=== PATIENT | male | born 1945 | race Caucasian/White ===

== ENCOUNTER 2017-06-24 14:44 | Observation (INO) ==
[2017-06-24] MEDS ORDERED: *HR* FentaNYL (PF) 100 MCG/2 ML VIAL IVP ONE ×2 (15:12→15:58)
[2017-06-24] MEDS ORDERED: 0.9 % Sodium Chloride 1,000 ML IVC ONE (15:12)
--- NOTE | 2017-06-24 15:16 | Emergency Department Note ---
START Narrative - START START: I examined this patient and my medical decision-making was reviewed with the Resident Physician. I agree with the documented findings, disposition and treatment plan as described except to the extent set forth below. 72-year-old male presents emergency room for right-sided abdominal pain. Patient was recently discovered to have multiple gallstones. He saw his general surgeon on Sunday wanted him to have cardiac clearance for gallbladder removal. He has been having increasing pain for the past 2 days. He stopped his Coumadin on Sunday. He had been on that for pulmonary embolus. Plan at this time is to check labs as well as a urinalysis and possible repeat CT scan to evaluate his gallbladder. Pain control. IV fluids. Patient will likely need to be admitted due to worsening symptoms and can have the cardiac clearance done during the stay.
[2017-06-24 15:52] LABS: Basophils % 0.4 %; Eosinophils # 0.1 K/mcL (0.0-0.6); Eosinophils % 1.1 %; Hematocrit 38.9 % (37.5-50.1); Immature Granulocytes % 0.6 % (0-4); Lymphocytes # 2.3 K/mcL (0.6-4.6); Lymphocytes % 22.2 %; Mean Corpuscular HGB Conc 33.4 g/dL (31.6-35.5); Mean Corpuscular Hemoglobin 32.3 pg (28.0-33.3); Mean Corpuscular Volume 96.8 fL (83.0-100.0); Monocytes # 0.8 K/mcL (0.0-1.3); Monocytes % 8.2 %; Neutrophils # 6.9 K/mcL (1.6-8.9); Platelet Count 160 K/mcL (140-400); Red Blood Count 4.02 M/mcL (4.19-5.50); Red Cell Distribution Width 14.6 % (11.5-14.5); Segmented Neutrophils % 67.5 %
--- NOTE | 2017-06-24 15:54 | Emergency Department Note ---
Disposition Clinical Impression: History of cholelithiasis, RUQ abdominal pain, RLQ abdominal pain Disposition: Admitted As Inpatient Condition: Fair Time of Disposition: 16:57 Abdominal Pain HPI - General Chief Complaint: ED Abdominal Pain Stated Complaint: Gallbladder Time Seen by Provider: 06/24/17 14:54 Source: patient, family Nursing Notes Reviewed: Yes Vital Signs Reviewed: Yes - History of Present Illness HPI Narrative: 72-year-old male has a history of CABG, cardiac stents 3, AICD who follows up with Dr. Sepulveda for cardiology presents today with worsening abdominal pain with concerns for gallbladder dysfunction. Patient had CT abdomen which showed numerous stones in the gallbladder but did not have acute cholecystitis. Patient has followed up with Dr. Garcia of Gen. surgery 2 days ago who stated he needed cardiac clearance before surgery. Dr. Garcia told the patient if the pain worsens to come to the ED. Patient's pain systems began just over week ago. Patient has pain in the right upper quadrant and right lower quadrant 8/10 sharp and dull without radiation. Patient also has a history of nephrectomy. 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 Pain Scale: 6 - Related Data Home Medications Medication Instructions Recorded Confirmed Albuterol Neb [Proventil Neb] 2.5 mg IH 2-4XD PRN 06/15/15 06/24/17 Alprazolam [Xanax] 0.5 mg PO TID 06/15/15 06/24/17 Aspirin Enteric Coated [Aspirin EC] 81 mg PO DAILY 06/15/15 06/24/17 Atorvastatin [Lipitor] 40 mg PO QAM 06/15/15 06/24/17 Digoxin [Lanoxin] 0.125 mg PO HS 06/15/15 06/24/17 Diltiazem HCl [Diltiazem 24Hr Cd] 240 mg PO DAILY 06/15/15 06/24/17 Furosemide [Lasix] 40 mg PO BID 06/15/15 06/24/17 Gabapentin [Neurontin] 200 mg PO BID 06/15/15 06/24/17 Metoprolol XL (24 HR) Succ [Toprol 25 mg PO DAILY 06/15/15 06/24/17 XL] Omeprazole [PriLOSEC] 20 mg PO BID 06/15/15 06/24/17 Tamsulosin [Flomax] 0.4 mg PO HS 06/15/15 06/24/17 Morphine Immed Rel [Morphine 30 mg PO BID PRN #0 08/19/15 06/24/17 Sulfate] OxyCODONE/APAP 5/325 [Percocet 1 tab PO QID PRN 09/04/15 06/24/17 5/325 MG] Fluticasone/Vilanterol [Breo 1 puff IH DAILY 12/05/16 06/24/17 Ellipta 100-25 Mcg INH] Terazosin [Hytrin] 1 mg PO HS 12/05/16 06/24/17 Vit C/E/Zn/Coppr/Lutein/Zeaxan 1 tab PO BID 12/05/16 06/24/17 [Preservision Areds 2 Softgel] Cyanocobalamin (Vitamin B-12) 1,000 mcg PO BID 06/14/17 06/24/17 [Vitamin B12] Warfarin [Coumadin] 3 mg PO 1800 06/14/17 06/24/17 Lactobacillus Acidophilus 1 tab PO DAILY 06/24/17 06/24/17 [Acidophilus Lactobacillus] Allergies Allergy/AdvReac Type Severity Reaction Status Date / Time Amoxicillin [From Augmentin] Allergy See Verified 06/24/17 14:46 Comments clavulanic acid Allergy See Verified 06/24/17 14:46 [From Augmentin] Comments Metolazone Allergy See Verified 06/24/17 14:46 Comments tobramycin Allergy See Verified 06/24/17 14:46 Comments All systems ED: reviewed and negative except as stated. Review of Systems: As Per HPI Constitutional: Denies: fever, chills, weakness ENT ED: Denies: congestion Cardiovascular: Denies: chest pain, palpitations, dyspnea on exertion Respiratory: Denies: cough, dyspnea, wheezes Gastrointestinal: Reports: abdominal pain. Denies: nausea, vomiting, diarrhea Genitourinary: Denies: urgency, dysuria, frequency, hematuria Musculoskeletal: Denies: back pain Integumentary: Denies: rash Neurological: Reports: headache Psychiatric: Denies: anxiety Endocrine: Denies: fatigue Abdominal Pain PMH - Past Medical History Medical history: Reports: arthritis, atrial fibrillation, COPD, coronary artery disease, diabetes, pulmonary embolus, renal disease Psychiatric history: Reports: no psych history - Social History Smoking status: Former smoker Alcohol use: Reports: none Drug use: Reports: none Physical Exam Vital Signs Temperature 97.6 F 06/24/17 14:47 Pulse Rate 66 06/24/17 14:47 Respiratory Rate 14 06/24/17 14:47 Blood Pressure 125/67 06/24/17 14:47 O2 Sat by Pulse Oximetry 95 06/24/17 14:47 Temperature 97.6 F 06/24/17 14:47 Pulse Rate 82 06/24/17 15:43 Respiratory Rate 16 06/24/17 15:43 Blood Pressure 124/69 06/24/17 15:43 O2 Sat by Pulse Oximetry 95 06/24/17 15:43 Oxygen Delivery Oxygen Delivery Room Air 72-year-old male who is alert and oriented 3. Is in acute distress secondary to his abdominal pain but is nontoxic appearing, patient's nondiaphoretic. Patient has no conversational dyspnea. - General Limitations: no limitations General appearance: alert, in no apparent distress - Head Head exam: atraumatic, normocephalic, normal inspection - Eye Eye exam: Present: normal appearance, PERRL, EOMI - ENT ENT exam: normal exam, normal oropharynx, mucous membranes moist - Neck Neck exam: Present: normal inspection, full ROM, trachea midline - Chest Chest inspection: Present: symmetric chest wall rise. Absent: tenderness, rash - Respiratory Respiratory exam: Present: normal lung sounds bilaterally. Absent: respiratory distress, wheezes - Cardiovascular Cardiovascular exam: Present: regular rate, normal rhythm, normal heart sounds - Abdominal Exam Abdominal exam: Present: soft, tenderness. Absent: distention, guarding, rebound, rigidity Abdominal tenderness: Present: RUQ, RLQ - Extremities Exam Extremities exam: Present: normal inspection, full ROM, normal capillary refill. Absent: tenderness, pedal edema - Back Exam Back exam: Present: normal inspection, full ROM, CVA tenderness (R). Absent: tenderness, CVA tenderness (L) - Skin Skin exam: Present: warm, dry, intact, normal color Course Vital Signs Temperature 97.6 F 06/24/17 14:47 Pulse Rate 66 06/24/17 14:47 Respiratory Rate 14 06/24/17 14:47 Blood Pressure 125/67 06/24/17 14:47 O2 Sat by Pulse Oximetry 95 06/24/17 14:47 Temperature 98.5 F 06/24/17 22:29 Pulse Rate 61 06/24/17 22:29 Respiratory Rate 18 06/24/17 22:29 Blood Pressure 131/76 06/24/17 22:29 O2 Sat by Pulse Oximetry 93 06/24/17 22:29 Oxygen Delivery Oxygen Delivery Room Air Abdominal Pain - MDM Narrative Medical decision making narrative: Patient presents with worsening abdominal pain and recent diagnosis of cholelithiasis. Patient was being evaluated for surgical removal of gallbladder but was awaiting cardiac evaluation for surgical clearance secondary to his heart history. He has no chest pain but worsening abdominal pain with no new additions to the character of the pain outside of the intensity. Patient is on Percocet at home and it is not working. I currently have the patient's pain symptoms under control with fentanyl IV. Patient's lab workup shows no abnormalities, no elevation in white count, no elevation BUN/creatinine, no elevation of troponin. CT abdomen and pelvis shows no change from previous. Plans to admit patient for control. The patient may need to have his gallbladder out sooner than later. Patient will require cardiac evaluation for surgical clearance. Patient understands and agrees to admission. Patient was apprehensive about being admitted because he did not want to be admitted if nothing was going to be done. I explained to the patient that since his pain is worsening and currently not controlled with home pain medication, his gallbladder issues may be getting worse and he will need to be reevaluated and possibly need surgery sooner than later. Dr. Cortes has accepted the patient for admission for intractable abdominal pain at 1649 hrs. - Lab Data Lab results reviewed: Yes I reviewed the patient's lab results. Lab results narrative: Short CBC 06/24/17 Range/Units 15:41 WBC 10.2 (4.3-11.1) K/mcL Hgb 13.0 (12.9-16.9) g/dL Hct 38.9 (37.5-50.1) % Plt Count 160 (140-400) K/mcL Neutrophils # 6.9 (1.6-8.9) K/mcL BMP 06/24/17 Range/Units 15:41 Sodium 141 (136-145) mEq/L Potassium 4.4 (3.5-4.5) mEq/L Chloride 103 (98-109) mEq/L Carbon Dioxide 29 (19-29) mEq/L BUN 24 (8-26) mg/dL Creatinine 1.12 (0.72-1.25) mg/dL Glucose 123 H (70-99) mg/dL Calcium 8.7 (8.6-10.8) mg/dL Cardiac Enzymes 06/24/17 Range/Units 15:41 Troponin I 0.01 (0-0.03) ng/mL Liver Function 06/24/17 Range/Units 15:41 Total Bilirubin 0.4 (0.2-1.2) mg/dL Direct Bilirubin 0.2 (0.0-0.5) mg/dL AST 16 (5-34) Units/L ALT 28 (0-55) Units/L Alkaline Phosphatase 103 (38-126) Units/L Albumin 2.8 L (3.5-5.0) g/dL Urine 06/24/17 Range/Units 16:00 Urine Color Yellow (Yellow) Urine Clarity Clear (Clear) Urine pH 7.0 (5.0-8.0) pH Units Ur Specific [place] 1.017 (1.010-1.025) Urine Protein Negative (Neg-Trace) mg/dL Urine Glucose (UA) Normal (Normal) mg/dL Result diagrams: 06/24/17 17:53 06/24/17 15:41 Lab Results 06/24/17 06/24/17 06/24/17 Range/Units 15:41 15:41 15:41 WBC (4.3-11.1) K/mcL RBC (4.19-5.50) M/mcL Hgb (12.9-16.9) g/dL Hct (37.5-50.1) % MCV (83.0-100.0) fL MCH (28.0-33.3) pg MCHC (31.6-35.5) g/dL RDW (11.5-14.5) % Plt Count (140-400) K/mcL MPV (9.4-12.4) fL Immature Gran % (0-4) % Seg Neutrophils % % Lymphocytes % % Monocytes % % Eosinophils % % Basophils % % Neutrophils # (1.6-8.9) K/mcL Lymphocytes # (0.6-4.6) K/mcL Monocytes # (0.0-1.3) K/mcL Eosinophils # (0.0-0.6) K/mcL Basophils # (0.0-0.2) K/mcL PT 16.6 H (9.4-12.1) Seconds INR 1.5 Sodium 141 (136-145) mEq/L Potassium 4.4 (3.5-4.5) mEq/L Chloride 103 (98-109) mEq/L Carbon Dioxide 29 (19-29) mEq/L BUN 24 (8-26) mg/dL Creatinine 1.12 (0.72-1.25) mg/dL Est GFR ( Amer) > 60 (> 60) Est GFR (Non-Af Amer) > 60 (> 60) BUN/Creatinine Ratio 21 (6-26) Glucose 123 H (70-99) mg/dL Calculated Osmolality 297 (280-300) Lactic Acid 1.7 (0.5-2.2) mmol/L Calcium 8.7 (8.6-10.8) mg/dL Total Bilirubin 0.4 (0.2-1.2) mg/dL Direct Bilirubin 0.2 (0.0-0.5) mg/dL Indirect Bilirubin 0.2 (0.0-1.2) mg/dL AST 16 (5-34) Units/L ALT 28 (0-55) Units/L Alkaline Phosphatase 103 (38-126) Units/L Troponin I (0-0.03) ng/mL Serum Total Protein 5.8 L (6.0-8.3) g/dL Albumin 2.8 L (3.5-5.0) g/dL Globulin 3.0 (2.4-3.5) g/dL Albumin/Globulin Ratio 0.9 L (1.1-2.2) Lipase 31 (8-78) Units/L Urine Color (Yellow) Urine Clarity (Clear) Urine pH (5.0-8.0) pH Units Ur Specific [place] (1.010-1.025) Urine Protein (Neg-Trace) mg/dL Urine Glucose (UA) (Normal) mg/dL Urine Ketones (Negative) mg/dL Urine Blood (Negative) Urine Nitrite (Negative) Urine Bilirubin (Negative) Urine Urobilinogen (Normal) mg/dL Ur Leukocyte Esterase (Negative) Ur Culture Indicated? (NO) 06/24/17 06/24/17 06/24/17 Range/Units 15:41 15:41 16:00 WBC 10.2 (4.3-11.1) K/mcL RBC 4.02 L (4.19-5.50) M/mcL Hgb 13.0 (12.9-16.9) g/dL Hct 38.9 (37.5-50.1) % MCV 96.8 (83.0-100.0) fL MCH 32.3 (28.0-33.3) pg MCHC 33.4 (31.6-35.5) g/dL RDW 14.6 H (11.5-14.5) % Plt Count 160 (140-400) K/mcL MPV 10.0 (9.4-12.4) fL Immature Gran % 0.6 (0-4) % Seg Neutrophils % 67.5 % Lymphocytes % 22.2 % Monocytes % 8.2 % Eosinophils % 1.1 % Basophils % 0.4 % Neutrophils # 6.9 (1.6-8.9) K/mcL Lymphocytes # 2.3 (0.6-4.6) K/mcL Monocytes # 0.8 (0.0-1.3) K/mcL Eosinophils # 0.1 (0.0-0.6) K/mcL Basophils # 0.0 (0.0-0.2) K/mcL PT (9.4-12.1) Seconds INR Sodium (136-145) mEq/L Potassium (3.5-4.5) mEq/L Chloride (98-109) mEq/L Carbon Dioxide (19-29) mEq/L BUN (8-26) mg/dL Creatinine (0.72-1.25) mg/dL Est GFR ( Amer) (> 60) Est GFR (Non-Af Amer) (> 60) BUN/Creatinine Ratio (6-26) Glucose (70-99) mg/dL Calculated Osmolality (280-300) Lactic Acid (0.5-2.2) mmol/L Calcium (8.6-10.8) mg/dL Total Bilirubin (0.2-1.2) mg/dL Direct Bilirubin (0.0-0.5) mg/dL Indirect Bilirubin (0.0-1.2) mg/dL AST (5-34) Units/L ALT (0-55) Units/L Alkaline Phosphatase (38-126) Units/L Troponin I 0.01 (0-0.03) ng/mL Serum Total Protein (6.0-8.3) g/dL Albumin (3.5-5.0) g/dL Globulin (2.4-3.5) g/dL Albumin/Globulin Ratio (1.1-2.2) Lipase (8-78) Units/L Urine Color Yellow (Yellow) Urine Clarity Clear (Clear) Urine pH 7.0 (5.0-8.0) pH Units Ur Specific [place] 1.017 (1.010-1.025) Urine Protein Negative (Neg-Trace) mg/dL Urine Glucose (UA) Normal (Normal) mg/dL Urine Ketones Negative (Negative) mg/dL Urine Blood Negative (Negative) Urine Nitrite Negative (Negative) Urine Bilirubin Negative (Negative) Urine Urobilinogen Normal (Normal) mg/dL Ur Leukocyte Esterase Negative (Negative) Ur Culture Indicated? NO (NO) - Radiology Data Radiology results reviewed: Yes I reviewed the patient's radiology results. Chest X-Ray 06/24/17 15:04 IMPRESSION: Stable portable study. D/ / Vianney Soto Cha, MD / Vianney Soto Cha, MD Interpreting Provider: Vianney Soto Cha, MD Abdomen/Pelvis CT 06/24/17 15:13 IMPRESSION: 1. No acute abdominopelvic abnormality. 2. Cholelithiasis. 3. Colonic diverticulosis. D/ / Lowell Gomez MD / Lowell Gomez MD Interpreting Provider: Lowell Gomez MD - EKG Data EKG attestation: Yes I reviewed and interpreted this EKG. EKG results narrative: EKG taken 06/24/2017 at 1521 hrs. shows paced rhythm at a rate of [address] elevations or depressions any leads, no QRS widening or QT prolongation. Previous EKG taken 06/14/2017 pulse shows a paced rhythm at a rate of 60 beats a minute with no acute ST elevations or depressions any reason, no QS widening or QT prolongation.
[2017-06-24 15:57] LABS: INR 1.5; Prothrombin Time 16.6 Seconds (9.4-12.1)
[2017-06-24 16:09] LABS: Alanine Aminotransferase 28 Units/L (0-55); Albumin 2.8 g/dL (3.5-5.0); Albumin/Globulin Ratio 0.9 (1.1-2.2); Alkaline Phosphatase 103 Units/L (38-126); Aspartate Amino Transferase 16 Units/L (5-34); BUN/Creatinine Ratio 21 (6-26); Bilirubin,Direct 0.2 mg/dL (0.0-0.5); Bilirubin,Indirect 0.2 mg/dL (0.0-1.2); Bilirubin,Total 0.4 mg/dL (0.2-1.2); Blood Urea Nitrogen 24 mg/dL (8-26); Calcium 8.7 mg/dL (8.6-10.8); Carbon Dioxide 29 mEq/L (19-29); Chloride 103 mEq/L (98-109); Glucose 123 mg/dL (70-99); Lipase 31 Units/L (8-78); Osmolality,Calculated 297 (280-300); Potassium 4.4 mEq/L (3.5-4.5); Sodium 141 mEq/L (136-145); Total Protein 5.8 g/dL (6.0-8.3); eGFR For African Americans > 60 (> 60); eGFR For Non-African Americans > 60 (> 60)
[2017-06-24 16:11] LABS: Bilirubin,Urine Negative (Negative); Blood,Urine Negative (Negative); Clarity,Urine Clear (Clear); Color,Urine Yellow (Yellow); Glucose,Urine (UA) Normal (Normal); Ketones,Urine Negative (Negative); Leukocyte Esterase,Urine Negative (Negative); Nitrite,Urine Negative (Negative); Protein,Urine Negative (Neg-Trace); Specific Gravity,Urine 1.017 (1.010-1.025); Urobilinogen,Urine Normal (Normal)
--- NOTE | 2017-06-24 17:45 | Internal Med History&Physical ---
Date of Encounter: 06/24/17 Time of Encounter: 17:42 Assessment and Plan (1) Cholelithiases Current visit: Yes Status: Acute Patient is having pain on the right side of the abdomen. I am not sure if cholelithiasis is the sole explanation for this pain. Pain is unrelated to meals. Patient denies any nausea vomiting. Exam shows no tenderness in the right upper quadrant. Patient has been taking opiate medications for this pain including morphine unscheduled basis 30 mg twice a day in addition to PRN Percocet for breakthrough pain has been decided to do an elective cholecystectomy. Patient will be kept until after midnight. We will discuss case with Dr. Garcia Qualifiers: Qualified Code(s): K80.20 - Calculus of gallbladder without cholecystitis without obstruction (2) Atrial fibrillation Current visit: Yes Status: Acute Patient is an anti-correlation for Coumadin. Reportedly he also has prior history of PE. Coumadin has been on hold since Sunday 4 days ago in anticipation for surgery. INR today's 1.5. Will continue holding Coumadin. Check INR in the morning he is on Cardizem and metoprolol for rate control and will continue that. Qualifiers: Qualified Code(s): I48.91 - Unspecified atrial fibrillation (3) Preoperative clearance Current visit: Yes Status: Acute Patient had CABG surgery 10 years ago. He has not had any coronary evaluation since then. This functional capacities fear. Can walk about 1 block and maybe 2 blocks except for the recent period of illness. He denies any active chest pain. EKG shows no ischemic changes. Nonetheless he has been recently hospitalized with chest pain. I was therefore ask cardiology service to evaluate the patient for clearance for surgery (4) Chronic pain Current visit: No Status: Chronic Patient is on chronic opiates Qualifiers: Qualified Code(s): G89.4 - Chronic pain syndrome (5) Coronary artery disease Current visit: Yes Status: Acute Patient had bypass surgery about 10 years ago. He denies any chest pain with exertion. Has not had any coronary evaluation since then. Qualifiers: Qualified Code(s): I25.10 - Atherosclerotic heart disease of [place] coronary artery without angina pectoris Internal Medicine - H&P: HPI Chief complaint: abdominal pain History of present illness: Mr. Goldberg is a 72 year old male with multiple medical problems including coronary artery disease status post CABG 10 years ago, COPD, atrial fibrillation and prior history of PE on anti-coagulation with Coumadin, presented emergency room today with the main complaint of abdominal pain. Patient has been having disdain for a long period of time and he is focused that it is related to his gallbladder. Patient has been on opiate medications morphine sulfate 30 mg twice daily over the past year in addition to Percocet for breakthrough pain and still has this pain. Patient is able to tolerate food well. No nausea or vomiting. Food does not exacerbate the pain. Patient denies any fevers or chills. No diarrhea. Imaging shows cholelithiasis with no evidence of cholecystitis. Because of repeated presentation with this pain was decided to undergo elective cholecystectomy. Patient denies today any chest pain. Family mentioned that he has been recently confused. He would get lost when he drive his car. He has no known history of dementia so far. He is on Coumadin and his Coumadin has been on hold for days ago in anticipation for surgery. I know today's 1.5 Past Med Surg Social Fam HX - Past Medical History Medical history: arthritis, atrial fibrillation, COPD, coronary artery disease, diabetes, pulmonary embolus, renal disease Psychiatric history: no psych history - Past Surgical History Surgical History: appendectomy, cataract, coronary bypass (CABG), herniorrhaphy , other - Social History Smoking Status: Former smoker Smokeless Tobacco Status: No Alcohol use: none Drug use: none - Family History Mother Family Member Ethnicity: Non- Living Status: Hx Family Cardiac Disorders: (unknown) Hx Family Respiratory Disorders: (unknown) Hx Family Cancer: (unknown) Hx Family GI Disorders: (unknown) Hx Family Endocrine Disorder: (unknown) Hx Family Neuromuscular Disorders: (unknown) Hx Family Neurologic Disorders: (unknown) Hx Family HEENT Disorders: (unknown) Hx Family Autoimmune Disorders: (unknown) Internal Medicine - H&P: Meds Albuterol Neb [Proventil Neb] 2.5 mg IH 2-4XD PRN 06/15/15 [History] Alprazolam [Xanax] 0.5 mg PO TID 06/15/15 [History] Aspirin Enteric Coated [Aspirin EC] 81 mg PO DAILY 06/15/15 [History] Atorvastatin [Lipitor] 40 mg PO QAM 06/15/15 [History] Digoxin [Lanoxin] 0.125 mg PO HS 06/15/15 [History] Diltiazem HCl [Diltiazem 24Hr Cd] 240 mg PO DAILY 06/15/15 [History] Furosemide [Lasix] 40 mg PO BID 06/15/15 [History] Gabapentin [Neurontin] 200 mg PO BID 06/15/15 [History] Metoprolol XL (24 HR) Succ [Toprol XL] 25 mg PO DAILY 06/15/15 [History] Omeprazole [PriLOSEC] 20 mg PO BID 06/15/15 [History] Tamsulosin [Flomax] 0.4 mg PO HS 06/15/15 [History] Morphine Immed Rel [Morphine Sulfate] 30 mg PO BID PRN #0 08/19/15 [History] OxyCODONE/APAP 5/325 [Percocet 5/325 MG] 1 tab PO QID PRN 09/04/15 [History] Fluticasone/Vilanterol [Breo Ellipta 100-25 Mcg INH] 1 puff IH DAILY 12/05/16 [ History] Terazosin [Hytrin] 1 mg PO HS 12/05/16 [History] Vit C/E/Zn/Coppr/Lutein/Zeaxan [Preservision Areds 2 Softgel] 1 tab PO BID 12/05 [History] Cyanocobalamin (Vitamin B-12) [Vitamin B12] 1,000 mcg PO BID 06/14/17 [History] Warfarin [Coumadin] 3 mg PO 1800 06/14/17 [History] Lactobacillus Acidophilus [Acidophilus Lactobacillus] 1 tab PO DAILY 06/24/17 [ History] 3 Allergy/AdvReac Type Severity Reaction Status Date / Time Amoxicillin [From Augmentin] Allergy See Verified 06/24/17 14:46 Comments clavulanic acid Allergy See Verified 06/24/17 14:46 [From Augmentin] Comments Metolazone Allergy See Verified 06/24/17 14:46 Comments tobramycin Allergy See Verified 06/24/17 14:46 Comments All Systems PM: A 10-system review of systems was performed and is negative for pertinent findings except as documented above in the HPI. Review of systems: 10 point review of systems is negative except for HPI - Constitutional Vitals: Temp Pulse Resp BP Pulse Ox 97.6 F 60 18 141/86 94 06/24/17 14:47 06/24/17 16:59 06/24/17 17:18 06/24/17 17:18 06/24/17 16:59 Exam: Gen.: patient is alert oriented times 3 not in distress. Cardiac: normal S1 S2 no additional sounds are murmurs. Chest: clear to auscultation. Abdomen: soft nontender nondistended. Lower extremity no swelling mucous membranes: moist Internal Med - H&P Results - Labs CBC & Chem 7: 06/24/17 15:41 06/24/17 15:41
[2017-06-24 18:01] LABS: Basophils # 0.1 K/mcL (0.0-0.2); Basophils % 0.5 %; Eosinophils # 0.1 K/mcL (0.0-0.6); Eosinophils % 1.1 %; Hematocrit 39.9 % (37.5-50.1); Hemoglobin 13.4 g/dL (12.9-16.9); Immature Granulocytes % 0.8 % (0-4); Lymphocytes # 2.8 K/mcL (0.6-4.6); Lymphocytes % 25.9 %; Mean Corpuscular HGB Conc 33.6 g/dL (31.6-35.5); Mean Corpuscular Hemoglobin 31.6 pg (28.0-33.3); Mean Corpuscular Volume 94.1 fL (83.0-100.0); Mean Platelet Volume 10.3 fL (9.4-12.4); Monocytes # 0.7 K/mcL (0.0-1.3); Monocytes % 6.9 %; Neutrophils # 6.9 K/mcL (1.6-8.9); Platelet Count 167 K/mcL (140-400); Red Blood Count 4.24 M/mcL (4.19-5.50); Red Cell Distribution Width 14.7 % (11.5-14.5); Segmented Neutrophils % 64.8 %
[2017-06-24] MEDS: *HR* Morphine Immed Rel 30 MG TABLET PO PRN (20:52)
[2017-06-24] MEDS: Furosemide 40 MG TABLET PO SCH (20:52)
[2017-06-24] MEDS: Gabapentin 100 MG CAPSULE PO SCH (20:53)
[2017-06-24] MEDS: ALPRAZolam 0.5 MG TABLET PO SCH (20:53)
[2017-06-24] MEDS: *HR* Digoxin 0.125 MG TABLET PO SCH (20:53)
[2017-06-24] MEDS ORDERED: Albuterol 2.5 MG/3 ML NEBULIZER IH PRN (21:00)
[2017-06-24] MEDS: *HR* HYDROmorphone 2 MG/ML SYRINGE IVP PRN (22:33)
[2017-06-25 04:38] LABS: INR 1.4; Prothrombin Time 14.7 Seconds (9.4-12.1)
[2017-06-25 04:52] LABS: Alanine Aminotransferase 28 Units/L (0-55); Alkaline Phosphatase 98 Units/L (38-126); Aspartate Amino Transferase 15 Units/L (5-34); BUN/Creatinine Ratio 16 (6-26); Blood Urea Nitrogen 20 mg/dL (8-26); C-Reactive Protein 15 mg/L (Less than 5); Calcium 8.9 mg/dL (8.6-10.8); Carbon Dioxide 30 mEq/L (19-29); Chloride 101 mEq/L (98-109); Globulin 3.1 g/dL (2.4-3.5); Glucose 96 mg/dL (70-99); Osmolality,Calculated 296 (280-300); Potassium 4.1 mEq/L (3.5-4.5); Sodium 142 mEq/L (136-145); Total Protein 6.1 g/dL (6.0-8.3); eGFR For African Americans > 60 (> 60); eGFR For Non-African Americans 56 (> 60)
[2017-06-25 04:57] LABS: Bilirubin,Total 0.8 mg/dL (0.2-1.2)
[2017-06-25] MEDS: *HR* HYDROmorphone 2 MG/ML SYRINGE IVP PRN ×5 (05:29→22:46)
[2017-06-25 05:42] LABS: Thyroid Stimulating Hormone 2.756 mcIU/mL (0.350-4.840)
[2017-06-25] MEDS: Lactobacillus 1 EACH CAP.SPRINK PO SCH (08:06)
[2017-06-25] MEDS: Furosemide 40 MG TABLET PO SCH ×2 (08:06→17:57)
[2017-06-25] MEDS: Diltiazem CD (24hr) 240 MG CAPSULE PO SCH (08:06)
[2017-06-25] MEDS: Metoprolol XL (24 HR) Succ 25 MG TAB.ER.24H PO SCH (08:06)
[2017-06-25] MEDS: *HR* Morphine Immed Rel 30 MG TABLET PO PRN ×2 (08:06→20:39)
[2017-06-25] MEDS: Aspirin Enteric Coated 81 MG Tablet PO SCH (08:06)
[2017-06-25] MEDS: Gabapentin 100 MG CAPSULE PO SCH ×2 (08:07→20:39)
[2017-06-25] MEDS: ALPRAZolam 0.5 MG TABLET PO SCH ×3 (08:07→20:39)
[2017-06-25] MEDS: (Fluticasone/Vilanterol [Breo Ellipta 100-25 Mcg Inh] IH SCH (08:07)
--- NOTE | 2017-06-25 09:40 | General Surgery Consult Note ---
<Mia Ross - Last Filed: 06/25/17 10:09> Date of Encounter: 06/25/17 Time of Encounter: 09:39 Assessment and Plan (1) Symptomatic cholelithiasis Current Visit: Yes Status: Acute Risks and benefits of laparoscopic cholecystectomy reviewed with patient and daughters at bedside. They are agreeable to proceed. Plan: -cardiology consult for preoperative risk stratification -laparoscopic cholecystectomy this afternoon -NPO -discomfort management -continue G.I. prophylaxis -DVT prophylaxis and chronic condition management per primary medicine team (2) Biliary sludge Current Visit: Yes Status: Acute See above (3) ASHD (arteriosclerotic heart disease) Current Visit: Yes Status: Acute See above Noted last echo below REPORT Echocardiogram Name: LITA ERAZO Date of Study: 11/04/2014 Date: 1945 Ht: 71.0 in Medical Record#: [id number] Age: 69 Wt: 241.0 lb Gender: Male BSA: 2.28 Order #: [id number] Location: [facility] OP Room #: Reading Physician: Bird Sepulveda DO Foreign Language Professor: David Belcher Ordering Physician: Jesus Garner MD Primary Physician: None Indications: Coronary artery disease Impressions: LVEF 55%. Normal left ventricular structure and function. Atypical septal motion consistent with post-operative status. Indeterminate diastolic function. Mildly dilated right ventricle with mild hypokinesis. Moderate to severely dilated left atrium. Mild tricuspid regurgitation. Mild-moderate pulmonary hypertension. Estimated RVSP is 47 mmHg. History of Present Illness Consult date: 06/25/17 (Dr. Garcia) Reason for consult: gallstones Requesting physician: [place] History of present illness: Please see hard chart for recent office surgical history and physical with Dr. Garcia on 06/22/2017. In brief, patient was seen for symptomatic Cholee (without acute cholecystitis. He was recommended to have a microscopic cholecystectomy with plans for cardiovascular risk stratification prior to the procedure, in the setting of history of AGUSTIN D, [place] PG, pacemaker present, atrial fibrillation with chronic anticoagulation. His most recent INR is 1.4. He is recommended to complete a laparoscopic cholecystectomy and intraoperative cholangiogram this afternoon. Risks and benefits of the procedure were reviewed with patient and his daughters at bedside. They are agreeable to proceed. We we have requested a cardiology consult for preoperative risk stratification. Per Dr. Whitt, they will evaluate the patient. Past Med Surg Social Fam HX - Past Medical History Medical history: arthritis, atrial fibrillation, COPD, coronary artery disease, diabetes, pulmonary embolus, renal disease Psychiatric history: no psych history - Past Surgical History Surgical History: appendectomy, cataract, coronary bypass (CABG), herniorrhaphy , other - Social History Smoking Status: Former smoker Smokeless Tobacco Status: No Alcohol use: none Drug use: none - Family History Mother Family Member Ethnicity: Non- Living Status: Hx Family Cardiac Disorders: (unknown) Hx Family Respiratory Disorders: (unknown) Hx Family Cancer: (unknown) Hx Family GI Disorders: (unknown) Hx Family Endocrine Disorder: (unknown) Hx Family Neuromuscular Disorders: (unknown) Hx Family Neurologic Disorders: (unknown) Hx Family HEENT Disorders: (unknown) Hx Family Autoimmune Disorders: (unknown) Medications and Allergies Albuterol Neb [Proventil Neb] 2.5 mg IH 2-4XD PRN 06/15/15 [History] Alprazolam [Xanax] 0.5 mg PO TID 06/15/15 [History] Aspirin Enteric Coated [Aspirin EC] 81 mg PO DAILY 06/15/15 [History] Atorvastatin [Lipitor] 40 mg PO QAM 06/15/15 [History] Digoxin [Lanoxin] 0.125 mg PO HS 06/15/15 [History] Diltiazem HCl [Diltiazem 24Hr Cd] 240 mg PO DAILY 06/15/15 [History] Furosemide [Lasix] 40 mg PO BID 06/15/15 [History] Gabapentin [Neurontin] 200 mg PO BID 06/15/15 [History] Metoprolol XL (24 HR) Succ [Toprol XL] 25 mg PO DAILY 06/15/15 [History] Omeprazole [PriLOSEC] 20 mg PO BID 06/15/15 [History] Tamsulosin [Flomax] 0.4 mg PO HS 06/15/15 [History] Morphine Immed Rel [Morphine Sulfate] 30 mg PO BID PRN #0 08/19/15 [History] OxyCODONE/APAP 5/325 [Percocet 5/325 MG] 1 tab PO QID PRN 09/04/15 [History] Fluticasone/Vilanterol [Breo Ellipta 100-25 Mcg INH] 1 puff IH DAILY 12/05/16 [ History] Terazosin [Hytrin] 1 mg PO HS 12/05/16 [History] Vit C/E/Zn/Coppr/Lutein/Zeaxan [Preservision Areds 2 Softgel] 1 tab PO BID 12/05 [History] Cyanocobalamin (Vitamin B-12) [Vitamin B12] 1,000 mcg PO BID 06/14/17 [History] Warfarin [Coumadin] 3 mg PO 1800 06/14/17 [History] Lactobacillus Acidophilus [Acidophilus Lactobacillus] 1 tab PO DAILY 06/24/17 [ History] 3 Allergy/AdvReac Type Severity Reaction Status Date / Time Amoxicillin [From Augmentin] Allergy See Verified 06/24/17 14:46 Comments clavulanic acid Allergy See Verified 06/24/17 14:46 [From Augmentin] Comments Metolazone Allergy See Verified 06/24/17 14:46 Comments tobramycin Allergy See Verified 06/24/17 14:46 Comments Review of Systems All systems PM: A 10-system review of systems was performed and is negative for pertinent findings except as documented above in the HPI. General Surgery Exam Initial Vital Signs Temp Pulse Resp BP Pulse Ox 97.6 F 66 14 125/67 95 06/24/17 14:47 06/24/17 14:47 06/24/17 14:47 06/24/17 14:47 06/24/17 14:47 - General physical appearance no distress, moderate pain - Eyes normal ocular movement - ENT normal mucosa, atraumatic, normocephalic - Neck no bruits, trachea midline, no venous distension - Respiratory normal expansion, normal respiratory effort, clear to auscultation - Cardiovascular Cardiovascular exam: Present: RRR, murmurs (1-2/6 systolic RSB) - Abdomen Abdomen general surgery: Present: bowel sounds present, soft, tender Abdominal Tenderness: Present: RUQ, RLQ Hernia: Present: none - Incision Incision: Present: clean and dry, intact - Integumentary Integumentary general surgery: Present: warm and dry, no abnormal pigmentation - Neurologic Present: CN 2-12 grossly intact, normal coordination, normal sensation - Musculoskeletal Present: normal posture, other (Uses cane and/or walker) - Psychiatric Psychiatric general surgery: Present: A&Ox3, appropriate, oriented to person, oriented to place, oriented to time, speech is normal, memory intact Exam Initial Vital Signs Temp Pulse Resp BP Pulse Ox 97.6 F 66 14 125/67 95 06/24/17 14:47 06/24/17 14:47 06/24/17 14:47 06/24/17 14:47 06/24/17 14:47 Results - Labs 06/24/17 17:53 06/25/17 04:14 Abnormal lab results RDW 14.7 % (11.5-14.5) H 06/24/17 17:53 ESR 15 mm/hr (0-10) H 06/25/17 04:14 PT 14.7 Seconds (9.4-12.1) H 06/25/17 04:14 Carbon Dioxide 30 mEq/L (19-29) H 06/25/17 04:14 Est GFR (Non-Af Amer) 56 (> 60) L 06/25/17 04:14 C-Reactive Protein 15 mg/L (Less than 5) H 06/25/17 04:14 Albumin 3.0 g/dL (3.5-5.0) L 06/25/17 04:14 Albumin/Globulin Ratio 1.0 (1.1-2.2) L 06/25/17 04:14 Diabetes panel 06/25/17 Range/Units 04:14 Sodium 142 (136-145) mEq/L Potassium 4.1 (3.5-4.5) mEq/L Chloride 101 (98-109) mEq/L Carbon Dioxide 30 H (19-29) mEq/L BUN 20 (8-26) mg/dL Creatinine 1.25 (0.72-1.25) mg/dL Glucose 96 (70-99) mg/dL Calcium 8.9 (8.6-10.8) mg/dL AST 15 (5-34) Units/L ALT 28 (0-55) Units/L Alkaline Phosphatase 98 (38-126) Units/L Albumin 3.0 L (3.5-5.0) g/dL Thyroid panel 06/25/17 Range/Units 04:14 TSH 2.756 (0.350-4.840) mcIU/mL Calcium panel 06/25/17 Range/Units 04:14 Calcium 8.9 (8.6-10.8) mg/dL Albumin 3.0 L (3.5-5.0) g/dL Pituitary panel 06/25/17 Range/Units 04:14 Sodium 142 (136-145) mEq/L Potassium 4.1 (3.5-4.5) mEq/L Chloride 101 (98-109) mEq/L Carbon Dioxide 30 H (19-29) mEq/L BUN 20 (8-26) mg/dL Creatinine 1.25 (0.72-1.25) mg/dL Glucose 96 (70-99) mg/dL Calcium 8.9 (8.6-10.8) mg/dL TSH 2.756 (0.350-4.840) mcIU/mL Adrenal panel 06/25/17 Range/Units 04:14 Sodium 142 (136-145) mEq/L Potassium 4.1 (3.5-4.5) mEq/L Chloride 101 (98-109) mEq/L Carbon Dioxide 30 H (19-29) mEq/L BUN 20 (8-26) mg/dL Creatinine 1.25 (0.72-1.25) mg/dL Glucose 96 (70-99) mg/dL Calcium 8.9 (8.6-10.8) mg/dL Total Bilirubin 0.8 D (0.2-1.2) mg/dL AST 15 (5-34) Units/L ALT 28 (0-55) Units/L Alkaline Phosphatase 98 (38-126) Units/L Albumin 3.0 L (3.5-5.0) g/dL All other labs normal. Consult Discharge Plan - Plan Referrals: Gregorio Starr DO [Primary Care Provider] - <Jacques Garcia - Last Filed: 06/25/17 13:15> Date of Encounter: 06/25/17 Review of Systems All systems PM: A 10-system review of systems was performed and is negative for pertinent findings except as documented above in the HPI. General Surgery Exam Initial Vital Signs Temp Pulse Resp BP Pulse Ox 97.6 F 66 14 125/67 95 06/24/17 14:47 06/24/17 14:47 06/24/17 14:47 06/24/17 14:47 06/24/17 14:47 Exam Initial Vital Signs Temp Pulse Resp BP Pulse Ox 97.6 F 66 14 125/67 95 06/24/17 14:47 06/24/17 14:47 06/24/17 14:47 06/24/17 14:47 06/24/17 14:47 Results - Labs 06/24/17 17:53 06/25/17 04:14 Abnormal lab results RDW 14.7 % (11.5-14.5) H 06/24/17 17:53 ESR 15 mm/hr (0-10) H 06/25/17 04:14 PT 14.7 Seconds (9.4-12.1) H 06/25/17 04:14 Carbon Dioxide 30 mEq/L (19-29) H 06/25/17 04:14 Est GFR (Non-Af Amer) 56 (> 60) L 06/25/17 04:14 C-Reactive Protein 15 mg/L (Less than 5) H 06/25/17 04:14 Albumin 3.0 g/dL (3.5-5.0) L 06/25/17 04:14 Albumin/Globulin Ratio 1.0 (1.1-2.2) L 06/25/17 04:14 Diabetes panel 06/25/17 Range/Units 04:14 Sodium 142 (136-145) mEq/L Potassium 4.1 (3.5-4.5) mEq/L Chloride 101 (98-109) mEq/L Carbon Dioxide 30 H (19-29) mEq/L BUN 20 (8-26) mg/dL Creatinine 1.25 (0.72-1.25) mg/dL Glucose 96 (70-99) mg/dL Calcium 8.9 (8.6-10.8) mg/dL AST 15 (5-34) Units/L ALT 28 (0-55) Units/L Alkaline Phosphatase 98 (38-126) Units/L Albumin 3.0 L (3.5-5.0) g/dL Thyroid panel 06/25/17 Range/Units 04:14 TSH 2.756 (0.350-4.840) mcIU/mL Calcium panel 06/25/17 Range/Units 04:14 Calcium 8.9 (8.6-10.8) mg/dL Albumin 3.0 L (3.5-5.0) g/dL Pituitary panel 06/25/17 Range/Units 04:14 Sodium 142 (136-145) mEq/L Potassium 4.1 (3.5-4.5) mEq/L Chloride 101 (98-109) mEq/L Carbon Dioxide 30 H (19-29) mEq/L BUN 20 (8-26) mg/dL Creatinine 1.25 (0.72-1.25) mg/dL Glucose 96 (70-99) mg/dL Calcium 8.9 (8.6-10.8) mg/dL TSH 2.756 (0.350-4.840) mcIU/mL Adrenal panel 06/25/17 Range/Units 04:14 Sodium 142 (136-145) mEq/L Potassium 4.1 (3.5-4.5) mEq/L Chloride 101 (98-109) mEq/L Carbon Dioxide 30 H (19-29) mEq/L BUN 20 (8-26) mg/dL Creatinine 1.25 (0.72-1.25) mg/dL Glucose 96 (70-99) mg/dL Calcium 8.9 (8.6-10.8) mg/dL Total Bilirubin 0.8 D (0.2-1.2) mg/dL AST 15 (5-34) Units/L ALT 28 (0-55) Units/L Alkaline Phosphatase 98 (38-126) Units/L Albumin 3.0 L (3.5-5.0) g/dL All other labs normal. - Attending Attestation I have personally performed a face to face evaluation on this patient. I have reviewed and agree with the care plan. History and Exam by me shows: The patient was seen and evaluated. I initially evaluated the patient on Sunday of last week. The patient has a personal history of pacemaker as well as atherosclerotic coronary artery disease and atrial fibrillation. That cardiac risk stratification and pacemaker evaluation as well as perioperative anticoagulation management was in the patient's best interest. In this was arranged as an outpatient. Unfortunately, the patient continued to have pain that worsened over the weekend. He is now admitted for unrelenting right upper quadrant pain. We will plan on performing cardiac risk stratification followed by cholecystectomy this hospital admission. I initially felt that laparoscopic cholecystectomy should be performed later today, however, I think that in his best interest we should finish the cardiac stress test and cardiac evaluation. We will plan laparoscopic cholecystectomy on Sunday if his workup is negative. Jacques Garcia MD FACS
[2017-06-25] MEDS ORDERED: Artificial Tears SOLN 15 ML BOTTLE BOTH EYES PRN (09:43)
[2017-06-25] MEDS ORDERED: Regadenoson 0.4 MG/5 ML SYRINGE IVP ONE (12:14)
--- NOTE | 2017-06-25 13:02 | Cardiology Consult Note ---
<Franchesca Vera - Last Filed: 06/25/17 13:05> Date of Encounter: 06/25/17 Time of Encounter: 12:00 Assessment and Plan (1) Preop cardiovascular exam Current Visit: Yes Status: Acute Per cardiology: -Cardiac risk stratification for cholecystectomy. -Denies chest pain, increased shortness of breath, or increased fatigue. -Known CAD. -Last ischemic evaluation 2011. -Will check non-exercise nuclear stress test. -Further recommendations pending Stress. (2) Coronary artery disease Current Visit: Yes Status: Chronic Per cardiology: -KNown CAD with Last [facility] 2011 with patent 4/4 bypass grafts. -TTE 2014 with LVEF 55%, atypical septal motion, mild TR, mild to moderate PH. -ECG unchanged from previous ECG. -Troponins negative x2. -On asa, statin, beta makeda. -Follows with in outpatient setting. -Nuclear stress pending. Qualifiers: Coronary Disease-Associated Artery/Lesion type: [place] artery [place] vs. transplanted heart: [place] heart Associated angina: without angina Qualified Code(s): I25.10 - Atherosclerotic heart disease of [place] coronary artery without angina pectoris (3) Pacemaker Current Visit: Yes Status: Chronic Per cardiology: -KNown single chamber pacemaker for tachybrady syndrome. -Laste device check 10/2016 with normal functioning device. 10 venticular high rates. Device check was reviewed with Dr.John Garner at time of check who noted atrial fibrillation with RVR. Discussion w patient/family: The assessment and plan as outlined above was discussed with the patient and/or family members who expressed understanding and agreement. All questions were answered. Thank you for involving us in the care of your patient. Please call with any questions. Discussed and reviewed with . History of Present Illness Consult date: 06/25/17 Requesting physician: Mia Ross Consult reason: pre-op cardiac exam Chief complaint: abdominal pain History of present illness: Mr. Goldberg is a 72 year old male with a relevant past medical history of CAD s /p CABG about 10 years ago, DMII, sleep apnea, COPD, atrial fibrillation, pacemaker. Patient presented to [facility] with complaints of abdominal pain. Plan for cholecystectomy today per surgery team. Cardiology has been asked to see and evaluate patient for pre-operative risk stratification. Patient denies chest pain or increased shortness of breath. Patient reports fatigue was about baseline. Past Med Surg Social Fam HX - Past Medical History Attestation: Yes The following information was validated with the patient. Source: patient, old records reviewed, obtained from family Medical history: arthritis, atrial fibrillation, COPD, coronary artery disease, diabetes, pulmonary embolus, renal disease Psychiatric history: no psych history - Past Surgical History Surgical History: appendectomy, cataract, coronary bypass (CABG), herniorrhaphy , other - Social History Smoking Status: Former smoker Smokeless Tobacco Status: No Alcohol use: none Drug use: none - Family History Mother Family Member Ethnicity: Non- Living Status: Hx Family Cardiac Disorders: (unknown) Hx Family Respiratory Disorders: (unknown) Hx Family Cancer: (unknown) Hx Family GI Disorders: (unknown) Hx Family Endocrine Disorder: (unknown) Hx Family Neuromuscular Disorders: (unknown) Hx Family Neurologic Disorders: (unknown) Hx Family HEENT Disorders: (unknown) Hx Family Autoimmune Disorders: (unknown) Medications and Allergies Albuterol Neb [Proventil Neb] 2.5 mg IH 2-4XD PRN 06/15/15 [History] Alprazolam [Xanax] 0.5 mg PO TID 06/15/15 [History] Aspirin Enteric Coated [Aspirin EC] 81 mg PO DAILY 06/15/15 [History] Atorvastatin [Lipitor] 40 mg PO QAM 06/15/15 [History] Digoxin [Lanoxin] 0.125 mg PO HS 06/15/15 [History] Diltiazem HCl [Diltiazem 24Hr Cd] 240 mg PO DAILY 06/15/15 [History] Furosemide [Lasix] 40 mg PO BID 06/15/15 [History] Gabapentin [Neurontin] 200 mg PO BID 06/15/15 [History] Metoprolol XL (24 HR) Succ [Toprol XL] 25 mg PO DAILY 06/15/15 [History] Omeprazole [PriLOSEC] 20 mg PO BID 06/15/15 [History] Tamsulosin [Flomax] 0.4 mg PO HS 06/15/15 [History] Morphine Immed Rel [Morphine Sulfate] 30 mg PO BID PRN #0 08/19/15 [History] OxyCODONE/APAP 5/325 [Percocet 5/325 MG] 1 tab PO QID PRN 09/04/15 [History] Fluticasone/Vilanterol [Breo Ellipta 100-25 Mcg INH] 1 puff IH DAILY 12/05/16 [ History] Terazosin [Hytrin] 1 mg PO HS 12/05/16 [History] Vit C/E/Zn/Coppr/Lutein/Zeaxan [Preservision Areds 2 Softgel] 1 tab PO BID 12/05 [History] Cyanocobalamin (Vitamin B-12) [Vitamin B12] 1,000 mcg PO BID 06/14/17 [History] Warfarin [Coumadin] 3 mg PO 1800 06/14/17 [History] Lactobacillus Acidophilus [Acidophilus Lactobacillus] 1 tab PO DAILY 06/24/17 [ History] 3 Allergy/AdvReac Type Severity Reaction Status Date / Time Amoxicillin [From Augmentin] Allergy See Verified 06/24/17 14:46 Comments clavulanic acid Allergy See Verified 06/24/17 14:46 [From Augmentin] Comments Metolazone Allergy See Verified 06/24/17 14:46 Comments tobramycin Allergy See Verified 06/24/17 14:46 Comments All Systems Review: A 10-system review of systems was performed and is negative for pertinent findings except as documented above in the HPI. - Cardiovascular Cardiovascular: as per HPI - Gastrointestinal Gastrointestinal: abdominal pain Physical Examination Vital Signs, Last 4 Hours Temp Pulse Resp BP Pulse Ox 06/25/17 10:31 98 F 66 18 117/73 93 General: Conversant, No Apparent Distress HEENT: Atraumatic, Normocephaly, Mucus Membranes Moist Neck: No JVD, Normal carotid pulses Cardiac: Reg Rate and Rhythm, Normal S1 and S2, No Murmur Lungs: Normal Breath Sounds, No Wheeze, Rales, Rhonchi Neuro: Alert and responsive, No focal deficits noted Abdomen: Other (Abdominal pain noted to palpation. ) Skin: No rashes noted on visualized skin Musculoskeletal: No Chest Wall Tenderness Extremities: No Clubbing, No Cyanosis, No Edema, Normal Pulses Results 06/24/17 17:53 06/25/17 04:14 Lab Results Impressions Chest X-Ray 06/24/17 15:04 IMPRESSION: Stable portable study. D/ / Vianney Soto Cha, MD / Vianney Soto Cha, MD Interpreting Provider: Vianney Soto Cha, MD Abdomen/Pelvis CT 06/24/17 15:13 IMPRESSION: 1. No acute abdominopelvic abnormality. 2. Cholelithiasis. 3. Colonic diverticulosis. D/ / Lowell Gomez MD / Lowell Gomez MD Interpreting Provider: Lowell Gomez MD Active Medications Albuterol Sulfate (Proventil Neb) 2.5 mg IH QID PRN; Protocol PRN Reason: Shortness Of Breath Stop: 12/24/17 21:01 Alprazolam (Xanax) 0.5 mg PO TID GAIL PRN Reason: Protocol Stop: 12/24/17 21:01 Last Admin: 06/25/17 08:07 Dose: 0.5 mg Artificial Tears (Akwa Tears) 1 drop BOTH EYES QID PRN; Protocol PRN Reason: Agitation Stop: 06/30/17 09:44 Last Admin: 06/25/17 11:58 Dose: 1 drop Aspirin (Aspirin Ec) 81 mg PO DAILY GAIL Stop: 12/25/17 09:01 Last Admin: 06/25/17 08:06 Dose: 81 mg Atorvastatin Calcium (Lipitor) 40 mg PO QAM GAIL Stop: 12/25/17 09:01 Last Admin: 06/25/17 08:06 Dose: 40 mg Digoxin (Lanoxin) 0.125 mg PO HS GAIL Stop: 12/24/17 21:01 Last Admin: 06/24/17 20:53 Dose: 0.125 mg Diltiazem HCl (Cardizem Cd) 240 mg PO DAILY GAIL Stop: 12/25/17 09:01 Last Admin: 06/25/17 08:06 Dose: 240 mg Furosemide (Lasix) 40 mg PO BIDDIURETIC GAIL Stop: 12/24/17 21:01 Last Admin: 06/25/17 08:06 Dose: 40 mg Gabapentin (Neurontin) 200 mg PO BID GAIL Stop: 12/24/17 21:01 Last Admin: 06/25/17 08:07 Dose: 200 mg Hydromorphone HCl (Dilaudid) 1 mg IVP Q4HR PRN PRN Reason: Severe Pain Stop: 12/24/17 17:40 Last Admin: 06/25/17 09:28 Dose: 1 mg Lactobacillus Acidophilus/Rhamnosus (Culturelle) 1 each PO DAILY GAIL Stop: 12/25/17 09:01 Last Admin: 06/25/17 08:06 Dose: 1 each Metoprolol Succinate (Toprol Xl) 25 mg PO DAILY GAIL Stop: 12/25/17 09:01 Last Admin: 06/25/17 08:06 Dose: 25 mg Morphine Sulfate (Morphine Sulfate) 30 mg PO BID PRN PRN Reason: Pain Stop: 12/24/17 17:38 Last Admin: 06/25/17 08:06 Dose: 30 mg Omeprazole (Prilosec) 20 mg PO BID GAIL PRN Reason: Protocol Stop: 12/24/17 21:01 Last Admin: 06/25/17 08:06 Dose: 20 mg Pharmacy Profile Note (Patient Taking Own Medication) 0 each IH DAILY GAIL Stop: 12/25/17 09:01 Last Admin: 06/25/17 08:07 Dose: Not Given Tamsulosin HCl (Flomax) 0.4 mg PO HS GAIL PRN Reason: Protocol Stop: 12/24/17 21:01 Last Admin: 06/24/17 20:52 Dose: 0.4 mg Terazosin HCl (Hytrin) 1 mg PO HS GAIL Stop: 12/24/17 21:01 Last Admin: 06/24/17 20:52 Dose: 1 mg Laboratory Tests 06/24/17 06/25/17 06/25/17 15:41 04:14 04:14 Creatinine 1.25 Troponin I 0.01 0.02 - Imaging and Cardiology Chest Xray: report reviewed Stress Test: pending, report reviewed Echo: report reviewed Cardiac cath: report reviewed - EKG Interpretation EKG results cardiology: personally reviewed (ECG with paced rhythm, HR 62.) Consult Discharge Plan - Plan Referrals: Gregorio Starr DO [Primary Care Provider] - <Ortega Whitt - Last Filed: 06/25/17 14:14> Date of Encounter: 06/25/17 - Attending Attestation I examined this patient and my medical decision-making was reviewed with the Nurse Practioner. I agree with the documented findings, disposition and treatment plan as described except to the extent set forth below. 72 YOM with h/o CAD (CABG >10years ago), DM, HTN, here for possible Lap Talisha. Last ischemic w/u 2011. patient is not very active hence accurate functional capacity is difficult to evaluate. ECHO and Stress test prior to further recommendations. Assessment and Plan Discussion w patient/family: The assessment and plan as outlined above was discussed with the patient and/or family members who expressed understanding and agreement. All questions were answered. Thank you for involving us in the care of your patient. Please call with any questions. History of Present Illness History of present illness: Mr. Goldberg is a 72 year old male All Systems Review: A 10-system review of systems was performed and is negative for pertinent findings except as documented above in the HPI. Physical Examination Vital Signs, Last 4 Hours Temp Pulse Resp BP Pulse Ox 06/25/17 10:31 98 F 66 18 117/73 93 Results 06/24/17 17:53 06/25/17 04:14 Lab Results 06/24/17 06/25/17 06/25/17 17:53 04:14 04:14 WBC 10.7 Hgb 13.4 Hct 39.9 Plt Count 167 INR 1.4 Sodium Potassium Chloride Carbon Dioxide BUN Creatinine Glucose Calcium Total Bilirubin AST ALT Alkaline Phosphatase Troponin I 0.02 TSH 06/25/17 04:14 WBC Hgb Hct Plt Count INR Sodium 142 Potassium 4.1 Chloride 101 Carbon Dioxide 30 H BUN 20 Creatinine 1.25 Glucose 96 Calcium 8.9 Total Bilirubin 0.8 D AST 15 ALT 28 Alkaline Phosphatase 98 Troponin I TSH 2.756
--- NOTE | 2017-06-25 13:15 | Internal Med Progress Note ---
Date of Encounter: 06/25/17 Time of Encounter: 10:30 - Subjective Interval history: Mr. Goldberg is a 72 year old male with multiple medical problems including coronary artery disease status post CABG 10 years ago, COPD, atrial fibrillation and prior history of PE on anti-coagulation with Coumadin, presented to emergency room with the main complaint of abdominal pain. Pt was off the Coumadin few days ago in lieu of elective cholecystectomy. pt sated his pain is well controlled with current medication. Denied any CP / SOB. - Constitutional Vitals: Temp Pulse Resp BP Pulse Ox 98 F 66 18 117/73 93 06/25/17 10:31 06/25/17 10:31 06/25/17 10:31 06/25/17 10:31 06/25/17 10:31 General appearance: Present: A&O X 3, no acute distress, answers questions appropriately - Head Head exam: Present: atraumatic, normal inspection - Neck Neck exam general surgery: Present: supple - Respiratory Respiratory exam: Present: decreased breath sounds. Absent: rales, respiratory distress, rhonchi, stridor, wheezes - Cardiovascular Cardiovascular exam: Present: RRR, +S1, +S2. Absent: systolic murmur, tachycardia - GI/Abdominal GI/Abdominal exam: Present: normal bowel sounds, soft, tenderness (RUQ). Absent : rebound, rigid - Extremities Exam Extremities exam: Absent: calf tenderness, pedal edema, tenderness - Back Exam Back exam: Absent: CVA tenderness (L), CVA tenderness (R) - Psychiatric Psychiatric exam: Present: normal affect, normal mood Internal Medicine: Result - Labs CBC & Chem 7: 06/24/17 17:53 06/25/17 04:14 Labs: Short CBC 06/24/17 Range/Units 17:53 WBC 10.7 (4.3-11.1) K/mcL Hgb 13.4 (12.9-16.9) g/dL Hct 39.9 (37.5-50.1) % Plt Count 167 (140-400) K/mcL Neutrophils # 6.9 (1.6-8.9) K/mcL BMP 06/25/17 04:14 Sodium 142 Potassium 4.1 Chloride 101 Carbon Dioxide 30 H BUN 20 Creatinine 1.25 Glucose 96 Calcium 8.9 Cardiac Enzymes 06/25/17 Range/Units 04:14 Troponin I 0.02 (0-0.03) ng/mL Liver Function 06/25/17 Range/Units 04:14 Total Bilirubin 0.8 D (0.2-1.2) mg/dL AST 15 (5-34) Units/L ALT 28 (0-55) Units/L Alkaline Phosphatase 98 (38-126) Units/L Albumin 3.0 L (3.5-5.0) g/dL - ABG Interpretation ABG results: PT/INR, D-dimer PT 14.7 Seconds (9.4-12.1) H 06/25/17 04:14 Consult Discharge Plan - Plan Referrals: Gregorio Starr DO [Primary Care Provider] - - Attending Attestation 1. Acute intractable RUQ abd pain with cholelithiasis scheduled for surgery today He does not have any recent 2 D Ehco , will get an echo as pre op work up also consulted Card for cardiac clearance since he does have an significant cardiac problems cont close monitoring 2. h/o CAD wiht s/p CABG 3. s/p Pacemaker with sick sinus syndrome cont home meds 4. Chronic diastolic CHF stable not in exacerbation hold Lasix for today due to surgery 5. Chronic A fib rate controlled with digoxin and Metoprolol Held Coumadin for surgery Will resume Coumadin depending on surgery and card recommendations 6. CKD-2 Stable Cr..at baseline 7. GI / DVT prophylaxis
--- NOTE | 2017-06-25 14:05 | Electrocardiograph Report ---
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
--- NOTE | 2017-06-25 19:44 | Anesthesia Evaluation PreOp ---
Date of Encounter: 06/25/17 Time of Encounter: 19:41 - Past History Planned Operation: Lap. Talisha. Cardiac History: Cardiac Surgery (CABGx4 10 years ago), Cardiac Stent (approx 20 years ago), Pacemaker/ICD (Pacemaker 2014, Last device check 10/2016 with normal functioning device), Other (KNown single chamber pacemaker for tachybrady syndrome. 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 History: Denies Any Significant HX Other Medical History: Renal (CRD), Diabetes Type II Anesthesia History: No Prior Anesthetic Complications, Past Anesthesia ( appendectomy, cataract, coronary bypass (CABG), herniorrhaphy,) Alcohol Use: none Drug use: none Medications and Allergies Albuterol Neb [Proventil Neb] 2.5 mg IH 2-4XD PRN 06/15/15 [History] Alprazolam [Xanax] 0.5 mg PO TID 06/15/15 [History] Aspirin Enteric Coated [Aspirin EC] 81 mg PO DAILY 06/15/15 [History] Atorvastatin [Lipitor] 40 mg PO QAM 06/15/15 [History] Digoxin [Lanoxin] 0.125 mg PO HS 06/15/15 [History] Diltiazem HCl [Diltiazem 24Hr Cd] 240 mg PO DAILY 06/15/15 [History] Furosemide [Lasix] 40 mg PO BID 06/15/15 [History] Gabapentin [Neurontin] 200 mg PO BID 06/15/15 [History] Metoprolol XL (24 HR) Succ [Toprol XL] 25 mg PO DAILY 06/15/15 [History] Omeprazole [PriLOSEC] 20 mg PO BID 06/15/15 [History] Tamsulosin [Flomax] 0.4 mg PO HS 06/15/15 [History] Morphine Immed Rel [Morphine Sulfate] 30 mg PO BID PRN #0 08/19/15 [History] OxyCODONE/APAP 5/325 [Percocet 5/325 MG] 1 tab PO QID PRN 09/04/15 [History] Fluticasone/Vilanterol [Breo Ellipta 100-25 Mcg INH] 1 puff IH DAILY 12/05/16 [ History] Terazosin [Hytrin] 1 mg PO HS 12/05/16 [History] Vit C/E/Zn/Coppr/Lutein/Zeaxan [Preservision Areds 2 Softgel] 1 tab PO BID 12/05 [History] Cyanocobalamin (Vitamin B-12) [Vitamin B12] 1,000 mcg PO BID 06/14/17 [History] Warfarin [Coumadin] 3 mg PO 1800 06/14/17 [History] Lactobacillus Acidophilus [Acidophilus Lactobacillus] 1 tab PO DAILY 06/24/17 [ History] 3 Allergy/AdvReac Type Severity Reaction Status Date / Time Amoxicillin [From Augmentin] Allergy See Verified 06/24/17 14:46 Comments clavulanic acid Allergy See Verified 06/24/17 14:46 [From Augmentin] Comments Metolazone Allergy See Verified 06/24/17 14:46 Comments tobramycin Allergy See Verified 06/24/17 14:46 Comments - Meds/Allergy Pre-op Review Medications Reviewed: Yes Allergies Reviewed: Yes Beta Blockers on Current Med List: Yes Anesthesia Results - Labs 06/24/17 17:53 06/25/17 04:14 Regadenoson Nuclear Stress Name: Karl Goldberg Date of Study: 06/25/2017 Date: 1945 Impression: There is a small, very mild intensity perfusion defect involving the distal inferolateral wall and apex during stress. Findings represent a small area of ischemia. Pharmacologic stress ECG not diagnostic for ischemia due to baseline abnormal ST findings. Occasional PVCs or aberrant conduction noted throughout testing. Low blood pressure prior to testing, 90/60 mmHg, which decreased with pharmacologic infusion to 64/42 mmHg. BP improved with IV normal saline infusion. Gated EF > 70%. Findings communicated to Cardiology Service. Cardiology Consult: Nuclear stress with very small area and mild intensity stress perfusion abnormality involving inferolateral wall and and apex. Findings discussed and reviewed with , who states patient is at moderate risk of cardiovacular events during surgery. Recommend continuing beta makeda and statin during surgery and after. - Imaging EKG: report reviewed (VENTRICULAR PACED RHYTHM PROBABLY UNDERLYING ATRIAL FIBRILLATION) Anesthesia Exam O2 Sat Weight 92.125 kg O2 Sat by Pulse Oximetry 97 O2 Sat by Pulse Oximetry 92 O2 Sat by Pulse Oximetry 93 O2 Sat by Pulse Oximetry 91 O2 Sat by Pulse Oximetry 94 O2 Sat by Pulse Oximetry 93 Vital Signs Temp Pulse Resp BP Pulse Ox 97.6 F 66 14 125/67 95 06/24/17 14:47 06/24/17 14:47 06/24/17 14:47 06/24/17 14:47 06/24/17 14:47 Vital Signs/O2 Sat, Most Current Temp Pulse Resp BP Pulse Ox 98.3 F 66 15 100/68 97 06/25/17 19:08 06/25/17 19:08 06/25/17 19:08 06/25/17 19:08 06/25/17 19:08 - HEENT Pupil (Motor): Pupils equal, EOMI Mallampati: III Teeth: Missing Denture Type: Upper: Complete, Lower: Partial Oral Opening: Greater than 3 - INDUSTRIAL X RAY OPERATOR LOC: Oriented INDUSTRIAL X RAY OPERATOR Motor: Normal RUE, Normal LUE, Normal RLE, Normal LLE, Normal Face INDUSTRIAL X RAY OPERATOR Sensory: Normal: RUE, LUE, RLE, LLE, Face - Cardiac Rhythm: Regular Murmur: None JVD: No Carotid Bruit: No - Pulmonary Breath Sounds: bilateral Clear Respiratory Effort: Symmetrical Anesthesia Assess/Plan ASA Score: 4 Modified [place] Scale for Level of Consciousness: Cooperative, oriented, and tranquil Anesthetic Plan: General Autologous Blood: Yes Monitoring Plan: Standard Monitors Recovery Plan: PACU
[2017-06-25] MEDS: *HR* Digoxin 0.125 MG TABLET PO SCH (20:40)
[2017-06-26] MEDS: *HR* HYDROmorphone 2 MG/ML SYRINGE IVP PRN ×4 (03:21→15:46)
[2017-06-26] MEDS ORDERED: 0.9 % Sodium Chloride 1,000 ML IVC SCH ×2 (07:15→19:57)
[2017-06-26] MEDS: ALPRAZolam 0.5 MG TABLET PO SCH ×3 (07:49→20:48)
[2017-06-26] MEDS: Metoprolol XL (24 HR) Succ 25 MG TAB.ER.24H PO SCH (07:49)
[2017-06-26] MEDS: Diltiazem CD (24hr) 240 MG CAPSULE PO SCH (07:49)
[2017-06-26] MEDS: Gabapentin 100 MG CAPSULE PO SCH ×2 (07:49→20:47)
[2017-06-26] MEDS: Aspirin Enteric Coated 81 MG Tablet PO SCH (07:50)
[2017-06-26] MEDS: Lactobacillus 1 EACH CAP.SPRINK PO SCH (07:50)
[2017-06-26] MEDS: Furosemide 40 MG TABLET PO SCH (07:50)
[2017-06-26] MEDS: (Fluticasone/Vilanterol [Breo Ellipta 100-25 Mcg Inh] IH SCH (07:59)
--- NOTE | 2017-06-26 13:37 | Internal Med Progress Note ---
Date of Encounter: 06/26/17 Time of Encounter: 13:34 - Subjective Interval history: Mr. Goldberg is a 72 year old male with multiple medical problems including coronary artery disease status post CABG 10 years ago, COPD, atrial fibrillation and prior history of PE on anti-coagulation with Coumadin, presented to emergency room with the main complaint of abdominal pain. Pt was off the Coumadin few days ago in lieu of elective cholecystectomy. pt sated his pain is well controlled with current medication. Denied any CP / SOB. He is scheduled for surgery this evening at 5.30 - Constitutional Vitals: Temp Pulse Resp BP Pulse Ox 97.4 F L 66 16 116/74 91 06/26/17 10:34 06/26/17 10:34 06/26/17 10:34 06/26/17 10:34 06/26/17 10:34 General appearance: Present: A&O X 3, no acute distress, answers questions appropriately - Head Head exam: Present: atraumatic, normal inspection - Respiratory Respiratory exam: Present: decreased breath sounds, wheezes. Absent: rales, respiratory distress, rhonchi - Cardiovascular Cardiovascular exam: Present: RRR, +S1, +S2, systolic murmur - GI/Abdominal GI/Abdominal exam: Present: normal bowel sounds, soft. Absent: rebound, rigid, tenderness - Extremities Exam Extremities exam: Present: pedal edema. Absent: calf tenderness, tenderness - Back Exam Back exam: Absent: CVA tenderness (L), CVA tenderness (R) - Neurological Exam Neurological exam: Present: alert, oriented X3 Internal Medicine: Result - Labs CBC & Chem 7: 06/24/17 17:53 06/25/17 04:14 - ABG Interpretation ABG results: PT/INR, D-dimer PT 14.7 Seconds (9.4-12.1) H 06/25/17 04:14 Consult Discharge Plan - Plan Referrals: Gregorio Starr DO [Primary Care Provider] - - Attending Attestation 1. Acute intractable RUQ abd pain with cholelithiasis scheduled for surgery today Pt was evaluated by shale planer operator, who did stress test His stress test came back mild intensity stress perfusion abnormality involving inferolateral wall and apex Recommend to cont B blcoker, ASA and Statin Need to f/u with card as an out pt He is at intermediate risk for surgeries like lap cholecystectomy cont close monitoring 2. h/o CAD wiht s/p CABG 3. s/p Pacemaker with sick sinus syndrome 4. Abnormal stress test cont home meds ASA, Statin, B makeda 5. Chronic diastolic CHF stable not in exacerbation hold Lasix for today due to surgery 6. Chronic A fib rate controlled with digoxin and Metoprolol Held Coumadin for surgery Will resume Coumadin depending on surgery and card recommendations 7. CKD-2 Stable Cr..at baseline 8. GI / DVT prophylaxis
[2017-06-26] MEDS ORDERED: *HR* Rocuronium Bromide 50 MG/5 ML VIAL ONE (15:58)
[2017-06-26] MEDS ORDERED: Ondansetron 4 MG/2 ML VIAL ONE (15:58)
[2017-06-26] MEDS ORDERED: Lidocaine -MPF 2% 2 ML VIAL ONE (15:58)
[2017-06-26] MEDS ORDERED: *HR* FentaNYL (PF) 100 MCG/2 ML VIAL ONE ×2 (15:59→17:20)
[2017-06-26] MEDS ORDERED: *HR* Propofol 200 MG/20 ML VIAL IVP ONE (15:59)
[2017-06-26] MEDS ORDERED: *HR* Midazolam HCl 2 MG/2 ML VIAL ONE (15:59)
[2017-06-26] MEDS ORDERED: cefOXitin 2,000 MG in D5% in Water (Mini-Bag+) 100 ML IVPB ONE (17:16)
[2017-06-26] MEDS ORDERED: Neostigmine Methylsulfate 3 MG/3 ML SYRINGE ONE (17:46)
--- NOTE | 2017-06-26 18:00 | Operative Note ---
Date of procedure: 06/26/17 Pre-op diagnosis: Cholelithiasis and chronic cholecystitis Post-op diagnosis: same Procedure: Laparoscopic cholecystectomy, cholangiogram Anesthesia: GEETHA Surgeon: Jacques Garcia Estimated blood loss (cc): 20 Specimen: Gallbladder and contents Condition: stable Disposition: same day Procedure in Detail: Laparoscopic cholecystectomy and intraoperative cholangiogram Operative procedure after informed consent and appropriate patient identification timeout the patient is taken to the major operating suite and placed supine position given adequate general endotracheal anesthesia the abdomen is prepped and draped in sterile fashion utilizing ChloraPrep standard draping techniques timeout was taken patient is identified. I made a vertical midline incision below the umbilicus dissected down to level of fascia there are 2 traction stitches placed in the abdominal cavity was entered visually. Initial cutdown on the midline to place a Davalos trocar was unsuccessful. I encountered adhesion tissue. I placed the 11 trocar into the subxiphoid area and insufflated the abdomen. I placed the scope in 11 trocar and then visualize the periumbilical area. The patient previously had hernia repair with mesh was not reported. I was able to make an incision below this and placed 2 traction stitches. A Davalos trocar was placed in the abdomen and the abdomen was insufflated to 15 mmHg pressure CO2 the gallbladder was visualized. I paced 2 5 mm ports in the subcostal area. The gallbladder was grasped and elevated. A variety of blunt and sharp dissection techniques were used to isolate the cystic duct and cystic artery. The gallbladder was initially encased in scar tissue however this was easily removed The cystic artery was controlled with 2 surgical clips proximally and one distally and it was divided I placed a surgical clip on the neck the gallbladder and obtained an intraoperative cholangiogram using 10 mL of Isovue. Intraoperative cholangiogram was normal. The cholangiocatheter was removed and the cystic duct was controlled with 2 surgical clips proximally and was divided the gallbladder was removed from the gallbladder fossae using electrocautery. The gallbladder was removed through the #11 port site. I replaced the #11 port and irrigated with copious amounts of antibiotic containing solution. There is no evidence of bleeding or bile leak. All trochars were removed. Blood loss was 20 mL Fascia was closed with 0 Vicryl skin with 2-0 and 4-0 Vicryl he tolerated the procedure well and was transferred to recovery in stable condition
[2017-06-26] MEDS ORDERED: *HR* HYDROmorphone (PF) 1 MG/ML SYRINGE ONE (18:08)
[2017-06-26] MEDS: *HR* HYDROmorphone (PF) 1 MG/ML SYRINGE IVP PRN ×2 (18:09→18:32)
[2017-06-26] MEDS ORDERED: *HR* Metoprolol 5 MG/5 ML VIAL IVP PRN (18:10)
[2017-06-26] MEDS ORDERED: Ondansetron 4 MG/2 ML VIAL IVP PRN ×2 (18:10→19:57)
--- NOTE | 2017-06-26 18:57 | Anesthesia Evaluation Post Op ---
Date of Encounter: 06/26/17 Time of Encounter: 18:56 - Vital Signs Vital Signs: Vital Signs/O2 Sat, Most Current Temp Pulse Resp BP Pulse Ox 99.6 F 90 14 124/66 98 06/26/17 18:52 06/26/17 18:52 06/26/17 18:52 06/26/17 18:52 06/26/17 18:52 - Lungs Lungs: Clear Ascult./Percussion - Airway Airway: Non-obstructed - Cardiovascular Regular Rate - Mental Status Mental Status: Alert & Oriented, Answers Appropriately - Pain Pain Scale: 0 Pain Scale used: Numeric (1 - 10) - Nausea Vomiting Nausea Vomiting: Not Present - Hydration Hydration: NPO, Has not voided - Discharge PostOp Status: Transfer Patient to floor
[2017-06-26] MEDS ORDERED: *HR* OxyCODONE/APAP 5/325 TABLET PO PRN (19:57)
[2017-06-26] MEDS ORDERED: Artificial Tears SOLN 15 ML BOTTLE BOTH EYES PRN (19:57)
[2017-06-26] MEDS ORDERED: *HR* HYDROmorphone (PF) 1 MG/ML SYRINGE IVP PRN (19:57)
[2017-06-26] MEDS ORDERED: *HR* HYDROmorphone 2 MG/ML SYRINGE IVP PRN (19:57)
[2017-06-26] MEDS ORDERED: Albuterol 2.5 MG/3 ML NEBULIZER IH PRN (19:57)
[2017-06-26] MEDS: Budesonide/Formoterol 80/4.5 MDI IH SCH (20:40)
[2017-06-26] MEDS: 0.9 % Sodium Chloride 1,000 ML IVC SCH (20:46)
[2017-06-26] MEDS: *HR* Digoxin 0.125 MG TABLET PO SCH (20:48)
[2017-06-26] MEDS ORDERED: Budesonide/Formoterol 80/4.5 MDI IH SCH (22:00)
[2017-06-27] MEDS: cefOXitin 2,000 MG in D5% in Water (Mini-Bag+) 100 ML IVPB SCH ×2 (00:35→09:06)
[2017-06-27] MEDS ORDERED: Acetaminophen 325 MG TABLET PO PRN ×2 (00:44→14:59)
[2017-06-27] MEDS: *HR* HYDROmorphone 2 MG/ML SYRINGE IVP PRN ×3 (03:44→13:57)
[2017-06-27 05:59] LABS: Basophils % 0.1 %; Hematocrit 44.6 % (37.5-50.1); Hemoglobin 14.7 g/dL (12.9-16.9); Immature Granulocytes % 0.9 % (0-4); Lymphocytes # 1.5 K/mcL (0.6-4.6); Lymphocytes % 9.7 %; Mean Corpuscular Hemoglobin 31.7 pg (28.0-33.3); Mean Corpuscular Volume 96.3 fL (83.0-100.0); Mean Platelet Volume 10.2 fL (9.4-12.4); Monocytes # 0.8 K/mcL (0.0-1.3); Monocytes % 4.9 %; Neutrophils # 13.4 K/mcL (1.6-8.9); Nucleated Red Blood Cells 0.1 /100 WBC (0); Platelet Count 178 K/mcL (140-400); Red Blood Count 4.63 M/mcL (4.19-5.50); Red Cell Distribution Width 14.8 % (11.5-14.5); Segmented Neutrophils % 84.4 %
[2017-06-27 06:08] LABS: Albumin 2.9 g/dL (3.5-5.0); Albumin/Globulin Ratio 0.8 (1.1-2.2); Bilirubin,Total 1.1 mg/dL (0.2-1.2); Calcium 8.6 mg/dL (8.6-10.8); Globulin 3.8 g/dL (2.4-3.5); Total Protein 6.7 g/dL (6.0-8.3)
[2017-06-27 06:11] LABS: Potassium 4.4 mEq/L (3.5-4.5)
[2017-06-27] MEDS: Budesonide/Formoterol 80/4.5 MDI IH SCH ×2 (07:57→20:33)
[2017-06-27] MEDS: Gabapentin 100 MG CAPSULE PO SCH ×2 (09:02→21:10)
[2017-06-27] MEDS: Metoprolol XL (24 HR) Succ 25 MG TAB.ER.24H PO SCH (09:03)
[2017-06-27] MEDS: Aspirin Enteric Coated 81 MG Tablet PO SCH (09:03)
[2017-06-27] MEDS: Lactobacillus 1 EACH CAP.SPRINK PO SCH (09:03)
[2017-06-27] MEDS: ALPRAZolam 0.5 MG TABLET PO SCH ×3 (09:03→21:10)
[2017-06-27] MEDS: Diltiazem CD (24hr) 240 MG CAPSULE PO SCH (09:09)
--- NOTE | 2017-06-27 10:02 | General Surgery Progress Note ---
<Fabian Nava - Last Filed: 06/27/17 15:03> Date of Encounter: 06/27/17 Time of Encounter: 09:45 - Assessment and Plan (1) Status post cholecystectomy Current Visit: Yes Status: Acute Patient is postop day 1 cholecystectomy. -His incision sites are red without drainage. No signs of infection. -Patient tolerated procedure well; no complications. -Intraoperative cholangiogram was normal; no evidence of leak or obstruction status post laparoscopic cholecystectomy. -Patient still complains of right lower quadrant abdominal pain. -Pain control: Acetaminophen 650 mg every 6 hours when necessary and Dilaudid 1 mg IVP every 4 when necessary. -Patient is tolerating clear liquid diet; advance to low fat diet. -Repeat AM labs. (2) RLQ abdominal pain Current Visit: Yes Status: Acute Patient complains of pain in the right lower quadrant. -Pain is reproduced by palpation. -No abdominal distension; normoactive bowel sounds in all 4 quadrants. -No peritoneal signs. -Dilaudid 1 mg IV by mouth every 4 hours when necessary for pain control. -Added percocet 5-325 for pain control. (3) Coronary artery disease Current Visit: Yes Status: Chronic Patient has known history of coronary artery disease. Post CABG 10 years ago. -Follows Dr. Sepulveda in the outpatient setting. -On aspirin, statin, beta makeda. Patient's home medications have been resumed. -Patient is currently on a clear liquid diet and cardiac monitoring. -Continue to monitor vital signs. Qualifiers: Coronary Disease-Associated Artery/Lesion type: [place] artery [place] vs. transplanted heart: [place] heart Associated angina: without angina Qualified Code(s): I25.10 - Atherosclerotic heart disease of [place] coronary artery without angina pectoris (4) Pacemaker Current Visit: Yes Status: Chronic Known single chamber pacemaker for tachybradycardia syndrome. -Last device check was 10/2016 with normal functioning device. Subjective Patient reports: still having pain Narrative: Patient was seen and examined bedside morning. Patient states that since his operation, he is still experiencing pain in the lower abdomen, primarily on the right side. Pain is reproducible by palpation. Incision site examined; no drainage, bleeding, or signs of infection. Mild erythema still present around the incision sites. Patient denies having any shortness of breath, nausea, vomiting, fever, chills, or GI distress. Patient has no other complaints besides his lower abdominal pain. Objective Vital Signs - Last 8 Hours Temp Pulse Resp BP Pulse Ox 06/27/17 09:17 97 06/27/17 09:00 76 14 133/80 97 06/27/17 08:02 18 97 06/27/17 05:34 97.9 F 86 16 103/68 98 06/27/17 03:23 98.2 F 100 17 137/77 97 Intake and Output 06/26/17 06/27/17 06/27/17 23:59 07:59 15:59 Intake Total 0 / 0 578 / 578 240 / 240 Output Total 320 / 320 475 / 475 Balance -320 / -320 103 / 103 240 / 240 Intake: IV Fluids 578 / 578 0.9 % Sodium Chloride 1,000 ML 478 / 478 @ 75 mls/hr IVC .[id number] GAIL Rx #:[id number] Mefoxin 2,000 MG In Dextrose 5% 100 / 100 (Minibag+) 100 ML 100 ML @ 200 mls/hr IVPB Q8HR GAIL Rx#: [id number] Oral 0 / 0 0 / 0 240 / 240 Output: Urine 300 / 300 475 / 475 Estimated Blood Loss 20 / 20 Other: Meal NPO Percent of Meal Consumed 0% Weight 90.764 kg Patient Weight 06/27/17 23:59 Weight 90.764 kg - General physical appearance well developed, well nourished, no distress, severe distress - Neck Neck exam: no masses, no bruits, trachea midline, no lymphadectomy, no venous distension - Respiratory normal expansion, normal respiratory effort, clear to percussion, clear to auscultation - Cardiovascular Cardiovascular exam: Present: no murmurs/rubs/gallops. Absent: bradycardia, tachycardia, murmurs, clicks, rubs, gallop, distant heart sounds, JVD - Abdomen Abdomen: Present: bowel sounds present, soft, tender, surgical scars. Absent: rebound, organomegaly Abdominal Tenderness: RLQ - Incision Incision: Present: red. Absent: draining, swollen, inflamed - Integumentary no rash, no growths, no abnormal pigmentation - Neurologic normal coordination, normal sensation - Psychiatric oriented to time, oriented to person, oriented to place, speech is normal, memory intact - Labs 06/27/17 05:29 06/27/17 05:29 Diabetes panel 06/27/17 Range/Units 05:29 Sodium 142 (136-145) mEq/L Potassium 4.4 (3.5-4.5) mEq/L Chloride 103 (98-109) mEq/L Carbon Dioxide 28 (19-29) mEq/L BUN 21 (8-26) mg/dL Creatinine 1.57 H (0.72-1.25) mg/dL Glucose 136 H (70-99) mg/dL Calcium 8.6 (8.6-10.8) mg/dL AST 58 H (5-34) Units/L ALT 62 H (0-55) Units/L Alkaline Phosphatase 112 (38-126) Units/L Albumin 2.9 L (3.5-5.0) g/dL Calcium panel 06/27/17 Range/Units 05:29 Calcium 8.6 (8.6-10.8) mg/dL Albumin 2.9 L (3.5-5.0) g/dL Pituitary panel 06/27/17 Range/Units 05:29 Sodium 142 (136-145) mEq/L Potassium 4.4 (3.5-4.5) mEq/L Chloride 103 (98-109) mEq/L Carbon Dioxide 28 (19-29) mEq/L BUN 21 (8-26) mg/dL Creatinine 1.57 H (0.72-1.25) mg/dL Glucose 136 H (70-99) mg/dL Calcium 8.6 (8.6-10.8) mg/dL Adrenal panel 06/27/17 Range/Units 05:29 Sodium 142 (136-145) mEq/L Potassium 4.4 (3.5-4.5) mEq/L Chloride 103 (98-109) mEq/L Carbon Dioxide 28 (19-29) mEq/L BUN 21 (8-26) mg/dL Creatinine 1.57 H (0.72-1.25) mg/dL Glucose 136 H (70-99) mg/dL Calcium 8.6 (8.6-10.8) mg/dL Total Bilirubin 1.1 (0.2-1.2) mg/dL AST 58 H (5-34) Units/L ALT 62 H (0-55) Units/L Alkaline Phosphatase 112 (38-126) Units/L Albumin 2.9 L (3.5-5.0) g/dL - VTE Documentation of Mechanical Device: Intermittent pneumatic compression device Consult Discharge Plan - Plan Instructions: Laparoscopic Cholecystectomy (DC) Additional Instructions: General Surgical Discharge Instructions 1. No pushing, pulling, or lifting greater than 15 lbs for two weeks. 2. You may shower beginning today, but no tub baths, soaking, or swimming for 2 weeks. 3. You may resume driving when you are off narcotics and are safe to react in a car. 4. Take narcotics as directed. Do not take more narcotics then directed and do not share your narcotics with any other person. Do not drink alcohol while on narcotics. 5. Take stool softeners (Colace) or a water based laxative (Miralax) while taking narcotics. You may hold for loose stools. 6. Report any fevers greater than 100.5F, increase abdominal discomfort, drainage that looks like pus, increased redness or pain at the surgical site, or any vomiting. 7. Report any pain in the calves, shortness of breath, or rapid heartbeat. 8. Follow-up in the office as directed. 9. If you were prescribed antibiotics, do not stop them without talking to your provider. Referrals: Jackeline Marshall CNP [Advanced Practice Nurse] - 07/12/17 9:45 am Gregorio Starr DO [Primary Care Provider] - Prescriptions: Docusate [Colace] 100 mg PO BID #60 capsule HYDROcodone/Acet 5/325 mg [[place] 5-325 mg] 1 tab PO Q6H PRN #28 tab PRN Reason: Pain <Jose,Jcaques T - Last Filed: 06/29/17 08:55> Date of Encounter: 06/29/17 Objective Vital Signs - Last 8 Hours Temp Pulse Resp BP Pulse Ox 06/29/17 07:57 16 96 06/29/17 07:18 97.2 F L 63 14 113/72 96 06/29/17 03:49 97.7 F 71 17 106/66 93 Intake and Output 06/28/17 06/29/17 06/29/17 23:59 07:59 15:59 Intake Total 240 / 240 100 / 100 Output Total 0 / 0 Balance 240 / 240 100 / 100 Intake: Oral 240 / 240 100 / 100 Output: Urine 0 / 0 Other: Meal Lunch Percent of Meal Consumed 100% # Voids 1 1 Weight 91.371 kg Patient Weight 06/29/17 23:59 Weight 91.371 kg - Labs 06/29/17 03:52 06/29/17 03:52 Diabetes panel 06/29/17 06/29/17 Range/Units 03:52 03:52 Sodium 140 (136-145) mEq/L Potassium 3.8 (3.5-4.5) mEq/L Chloride 104 (98-109) mEq/L Carbon Dioxide 29 (19-29) mEq/L BUN 22 (8-26) mg/dL Creatinine 1.21 (0.72-1.25) mg/dL Glucose 114 H (70-99) mg/dL Calcium 8.4 L (8.6-10.8) mg/dL AST 30 (5-34) Units/L ALT 63 H (0-55) Units/L Alkaline Phosphatase 118 (38-126) Units/L Albumin 2.6 L (3.5-5.0) g/dL Calcium panel 06/29/17 06/29/17 Range/Units 03:52 03:52 Calcium 8.4 L (8.6-10.8) mg/dL Albumin 2.6 L (3.5-5.0) g/dL Pituitary panel 06/29/17 Range/Units 03:52 Sodium 140 (136-145) mEq/L Potassium 3.8 (3.5-4.5) mEq/L Chloride 104 (98-109) mEq/L Carbon Dioxide 29 (19-29) mEq/L BUN 22 (8-26) mg/dL Creatinine 1.21 (0.72-1.25) mg/dL Glucose 114 H (70-99) mg/dL Calcium 8.4 L (8.6-10.8) mg/dL Adrenal panel 06/29/17 06/29/17 Range/Units 03:52 03:52 Sodium 140 (136-145) mEq/L Potassium 3.8 (3.5-4.5) mEq/L Chloride 104 (98-109) mEq/L Carbon Dioxide 29 (19-29) mEq/L BUN 22 (8-26) mg/dL Creatinine 1.21 (0.72-1.25) mg/dL Glucose 114 H (70-99) mg/dL Calcium 8.4 L (8.6-10.8) mg/dL Total Bilirubin 0.7 (0.2-1.2) mg/dL AST 30 (5-34) Units/L ALT 63 H (0-55) Units/L Alkaline Phosphatase 118 (38-126) Units/L Albumin 2.6 L (3.5-5.0) g/dL - Attending Attestation I examined this patient and my medical decision-making was reviewed with the Resident Physician. I agree with the documented findings, disposition and treatment plan as described except to the extent set forth below. The patient is seen and evaluated on morning rounds. His preoperative pain syndrome is gone. The incisions are intact. We will advance his diet and slowly increase his activity. He may require a short stay in rehabilitation to completely recover. Jacques Garcia MD FACS
[2017-06-27 11:00] LABS: INR 1.3; Prothrombin Time 14.4 Seconds (9.4-12.1)
[2017-06-27] MEDS: 0.9 % Sodium Chloride 1,000 ML IVC SCH (11:05)
[2017-06-27] MEDS ORDERED: *HR* HYDROmorphone (PF) 1 MG/ML SYRINGE IVP PRN (14:59)
[2017-06-27] MEDS ORDERED: *HR* OxyCODONE/APAP 5/325 TABLET PO PRN (14:59)
--- NOTE | 2017-06-27 16:58 | Internal Med Progress Note ---
Date of Encounter: 06/27/17 Time of Encounter: 15:30 - Subjective Interval history: Mr. Goldberg is a 72 year old male with multiple medical problems including coronary artery disease status post CABG 10 years ago, COPD, atrial fibrillation and prior history of PE on anti-coagulation with Coumadin, presented to emergency room with the main complaint of abdominal pain. Pt was off the Coumadin few days ago in lieu of elective cholecystectomy. Pt was admitted here with RUQ abd pain and did go for lap cholecystectomy y/d. pt sated his pain is well controlled with current medication. Denied any CP / SOB. No events since surgery. Tolerating clear liquid diet well. - Constitutional Vitals: Temp Pulse Resp BP Pulse Ox 97.3 F L 85 18 121/76 96 06/27/17 11:26 06/27/17 11:26 06/27/17 11:26 06/27/17 11:26 06/27/17 11:26 General appearance: Present: A&O X 3, no acute distress, answers questions appropriately Exam: Looks little lethargic today - Head Head exam: Present: atraumatic, normal inspection - Respiratory Respiratory exam: Present: decreased breath sounds, rales (mild). Absent: respiratory distress, rhonchi, wheezes - Cardiovascular Cardiovascular exam: Present: RRR, +S1, +S2. Absent: systolic murmur - GI/Abdominal GI/Abdominal exam: Present: normal bowel sounds, soft, tenderness (mild tenderness at surgical incision sites). Absent: rebound, rigid Additional comments: clean incisions - Extremities Exam Extremities exam: Present: pedal edema (trace). Absent: calf tenderness, tenderness - Neurological Exam Neurological exam: Present: alert, oriented X3 - Psychiatric Psychiatric exam: Present: depressed Internal Medicine: Result - Labs CBC & Chem 7: 06/27/17 05:29 06/27/17 05:29 Labs: Short CBC 06/27/17 Range/Units 05:29 WBC 15.9 H (4.3-11.1) K/mcL Hgb 14.7 (12.9-16.9) g/dL Hct 44.6 (37.5-50.1) % Plt Count 178 (140-400) K/mcL Neutrophils # 13.4 H (1.6-8.9) K/mcL BMP 06/27/17 05:29 Sodium 142 Potassium 4.4 Chloride 103 Carbon Dioxide 28 BUN 21 Creatinine 1.57 H Glucose 136 H Calcium 8.6 Liver Function 06/27/17 Range/Units 05:29 Total Bilirubin 1.1 (0.2-1.2) mg/dL AST 58 H (5-34) Units/L ALT 62 H (0-55) Units/L Alkaline Phosphatase 112 (38-126) Units/L Albumin 2.9 L (3.5-5.0) g/dL - ABG Interpretation ABG results: PT/INR, D-dimer PT 14.4 Seconds (9.4-12.1) H 06/27/17 10:22 - Impressions Impressions Cholangiogram,Operative 06/26/17 00:00 IMPRESSION: No evidence of leak or obstruction status post laparoscopic cholecystectomy. D/ / Triston Reardon MD / Triston Reardon MD Interpreting Provider: Triston Reardon MD - VTE Documentation of Mechanical Device: Intermittent pneumatic compression device Consult Discharge Plan - Plan Referrals: Gregorio Starr DO [Primary Care Provider] - - Attending Attestation 1. Acute intractable RUQ abd pain with cholelithiasis 2. s/p Lap cholecystectomy No complications so far cont current excellent post op care as per surgery will resume coumadin in AM cont close monitoring Pt was evaluated by fruit washer, who did stress test His stress test came back mild intensity stress perfusion abnormality involving inferolateral wall and apex Recommend to cont B blcoker, ASA and Statin Need to f/u with card as an out pt 3. MANINDER with CKD-2 Cr slightly elevated today received IV till this evening held IVF now due to his SOB / wet lungs held diuretics Will use Lasix PRN at this point 4. h/o CAD wiht s/p CABG 5. s/p Pacemaker with sick sinus syndrome 6. Abnormal stress test cont home meds ASA, Statin, B makeda 7. Chronic diastolic CHF stable not in exacerbation hold Lasix for today 8. Chronic A fib rate controlled with digoxin and Metoprolol talked to surgery about coumadin..will resume in AM 9. GI / DVT prophylaxis
--- NOTE | 2017-06-27 17:07 | Electrocardiograph Report ---
[address] [place], [place] [address] Test Date: 2017-06-27 Pat Name: Karl Goldberg Department: 115 Room: 3A51 Gender: M [employer] Practitioner: : 1945 Requested By: Tad Barrios Order Number: [id number] Reading MD: Siria Calderon Measurements Intervals [place]man Rate: 116 P: SC: 0 QRS: -7 QRSD: 81 T: 158 QT: 255 QTc: 324 Interpretive Statements ATRIAL FIBRILLATION WITH RAPID VENTRICULAR RESPONSE SEPTAL MYOCARDIAL INFARCTION, OF INDETERMINATE AGE MODERATE T-WAVE ABNORMALITY, CONSIDER ANTEROLATERAL ISCHEMIA Electronically Signed On 06-27-2017 17:05:24 EDT by Siria Calderon
[2017-06-27] MEDS: *HR* Digoxin 0.125 MG TABLET PO SCH (21:10)
[2017-06-28] MEDS: *HR* HYDROmorphone (PF) 1 MG/ML SYRINGE IVP PRN ×4 (03:24→20:08)
[2017-06-28 06:29] LABS: Basophils % 0.2 %; Eosinophils # 0.1 K/mcL (0.0-0.6); Eosinophils % 0.9 %; Hematocrit 38.9 % (37.5-50.1); Immature Granulocytes % 0.3 % (0-4); Lymphocytes # 1.9 K/mcL (0.6-4.6); Lymphocytes % 16.1 %; Mean Corpuscular HGB Conc 33.4 g/dL (31.6-35.5); Mean Corpuscular Hemoglobin 31.8 pg (28.0-33.3); Mean Corpuscular Volume 95.1 fL (83.0-100.0); Mean Platelet Volume 9.9 fL (9.4-12.4); Monocytes # 0.8 K/mcL (0.0-1.3); Monocytes % 7.1 %; Neutrophils # 8.8 K/mcL (1.6-8.9); Platelet Count 144 K/mcL (140-400); Red Blood Count 4.09 M/mcL (4.19-5.50); Red Cell Distribution Width 14.6 % (11.5-14.5); Segmented Neutrophils % 75.4 %
[2017-06-28 06:30] LABS: INR 1.3; Prothrombin Time 14.2 Seconds (9.4-12.1)
[2017-06-28 06:39] LABS: BUN/Creatinine Ratio 18 (6-26); Blood Urea Nitrogen 20 mg/dL (8-26); Calcium 8.4 mg/dL (8.6-10.8); Carbon Dioxide 29 mEq/L (19-29); Chloride 105 mEq/L (98-109); Glucose 119 mg/dL (70-99); Osmolality,Calculated 296 (280-300); Potassium 3.7 mEq/L (3.5-4.5); Sodium 141 mEq/L (136-145); eGFR For African Americans > 60 (> 60); eGFR For Non-African Americans > 60 (> 60)
[2017-06-28] MEDS: Budesonide/Formoterol 80/4.5 MDI IH SCH ×2 (07:32→21:41)
[2017-06-28] MEDS: Diltiazem CD (24hr) 240 MG CAPSULE PO SCH (09:39)
[2017-06-28] MEDS: Metoprolol XL (24 HR) Succ 25 MG TAB.ER.24H PO SCH (09:39)
[2017-06-28] MEDS: Gabapentin 100 MG CAPSULE PO SCH ×2 (09:39→19:59)
[2017-06-28] MEDS: Aspirin Enteric Coated 81 MG Tablet PO SCH (09:40)
[2017-06-28] MEDS: ALPRAZolam 0.5 MG TABLET PO SCH ×3 (09:40→20:00)
[2017-06-28] MEDS: Lactobacillus 1 EACH CAP.SPRINK PO SCH (09:44)
--- NOTE | 2017-06-28 11:27 | General Surgery Progress Note ---
<Mia Ross - Last Filed: 06/28/17 11:39> Date of Encounter: 06/28/17 Time of Encounter: 11:24 - Assessment and Plan (1) Symptomatic cholelithiasis Status: Acute S/P laparoscopic cholecystectomy with Dr. Garcia on 06/26/2017 Plan: -continued discomfort management; PO pain medication and PRN IV for breakthrough pain. He states his discomfort is not controlled on the current regimen we will add Toradol IVP Q6 hours -advanced diet is tolerated -PT/OT per primary medicine -DVT prophylaxis and chronic condition management per primary medicine team He reports soreness on his buttocks. Small blanchable are noted. Recommend decubitus prevention strategies per primary team. He has recommended to increase activity with PT and OT prior to discharge; however, from a surgical standpoint he is doing well at this time. Surgery will sign off at this time. Please re-consult if you have any questions or concerns. Thank you for allowing us to participate in Mr. Erazo's care. (2) Biliary sludge Status: Acute See above (3) ASHD (arteriosclerotic heart disease) Status: Acute See above Noted last echo below REPORT Echocardiogram Name: LITA ERAZO Date of Study: 11/04/2014 Date: 1945 Ht: 71.0 in Medical Record#: [id number] Age: 69 Wt: 241.0 lb Gender: Male BSA: 2.28 Order #: [id number] Location: [facility] OP Room #: Reading Physician: Bird Sepulveda DO Certified Family Mediator: David Belcher Ordering Physician: Jesus Garner MD Primary Physician: None Indications: Coronary artery disease Impressions: LVEF 55%. Normal left ventricular structure and function. Atypical septal motion consistent with post-operative status. Indeterminate diastolic function. Mildly dilated right ventricle with mild hypokinesis. Moderate to severely dilated left atrium. Mild tricuspid regurgitation. Mild-moderate pulmonary hypertension. Estimated RVSP is 47 mmHg. Subjective Patient reports: no new complaints, feels better, still having pain, pain is less, tolerating liquids well, tolerating a regular diet, voiding w/o difficulty , flatus, bowel movement, afebrile Objective Vital Signs - Last 8 Hours Temp Pulse Resp BP Pulse Ox 06/28/17 11:07 97.7 F 77 14 118/70 95 10/26/17 07:32 16 97 06/28/17 07:30 97.4 F L 66 18 111/65 98 Intake and Output 06/27/17 06/28/17 06/28/17 23:59 07:59 15:59 Intake Total 120 / 120 0 / 0 180 / 180 Output Total 750 / 750 225 / 225 Balance 120 / 120 -750 / -750 -45 / -45 Intake: Oral 120 / 120 0 / 0 180 / 180 Output: Urine 750 / 750 225 / 225 Other: Meal Dinner Percent of Meal Consumed 75% Stool Size Moderate Stool Consistency loose Stool Color Brown Yellow Weight 89.312 kg Patient Weight 06/28/17 23:59 Weight 89.312 kg - General physical appearance no distress, moderate pain - Eyes normal ocular movement - ENT atraumatic, normocephalic - Neck Neck exam: trachea midline, no venous distension - Respiratory normal expansion, normal respiratory effort, clear to auscultation - Cardiovascular Cardiovascular exam: Present: RRR - Abdomen Abdomen: Present: non tender, tender (Expected postoperative tenderness) Hernia: none - Incision Incision: Present: clean and dry, intact - Integumentary no rash, no growths, other (Sacral area red. Area does jeferson.) - Neurologic normal sensation - Musculoskeletal normal posture, other (Generalized weakness) - Psychiatric oriented to time, oriented to person, oriented to place, speech is normal, memory intact - Labs 06/28/17 06:02 06/28/17 06:02 Diabetes panel 06/28/17 Range/Units 06:02 Sodium 141 (136-145) mEq/L Potassium 3.7 (3.5-4.5) mEq/L Chloride 105 (98-109) mEq/L Carbon Dioxide 29 (19-29) mEq/L BUN 20 (8-26) mg/dL Creatinine 1.12 (0.72-1.25) mg/dL Glucose 119 H (70-99) mg/dL Calcium 8.4 L (8.6-10.8) mg/dL Calcium panel 06/28/17 Range/Units 06:02 Calcium 8.4 L (8.6-10.8) mg/dL Pituitary panel 06/28/17 Range/Units 06:02 Sodium 141 (136-145) mEq/L Potassium 3.7 (3.5-4.5) mEq/L Chloride 105 (98-109) mEq/L Carbon Dioxide 29 (19-29) mEq/L BUN 20 (8-26) mg/dL Creatinine 1.12 (0.72-1.25) mg/dL Glucose 119 H (70-99) mg/dL Calcium 8.4 L (8.6-10.8) mg/dL Adrenal panel 06/28/17 Range/Units 06:02 Sodium 141 (136-145) mEq/L Potassium 3.7 (3.5-4.5) mEq/L Chloride 105 (98-109) mEq/L Carbon Dioxide 29 (19-29) mEq/L BUN 20 (8-26) mg/dL Creatinine 1.12 (0.72-1.25) mg/dL Glucose 119 H (70-99) mg/dL Calcium 8.4 L (8.6-10.8) mg/dL - VTE Documentation of Mechanical Device: Intermittent pneumatic compression device Consult Discharge Plan - Plan Instructions: Oxycodone/Acetaminophen (By mouth), Warfarin (By mouth), Enoxaparin (Injection), Atrial Fibrillation (DC), Laparoscopic Cholecystectomy ( DC), Chronic Obstructive Pulmonary Disease (DC) Additional Instructions: General Surgical Discharge Instructions 1. No pushing, pulling, or lifting greater than 15 lbs for two weeks. 2. You may shower beginning today, but no tub baths, soaking, or swimming for 2 weeks. 3. You may resume driving when you are off narcotics and are safe to react in a car. 4. Take narcotics as directed. Do not take more narcotics then directed and do not share your narcotics with any other person. Do not drink alcohol while on narcotics. 5. Take stool softeners (Colace) or a water based laxative (Miralax) while taking narcotics. You may hold for loose stools. 6. Report any fevers greater than 100.5F, increase abdominal discomfort, drainage that looks like pus, increased redness or pain at the surgical site, or any vomiting. 7. Report any pain in the calves, shortness of breath, or rapid heartbeat. 8. Follow-up in the office as directed. 9. If you were prescribed antibiotics, do not stop them without talking to your provider. Referrals: Viky Mcfadden CNP [Partnered Physician] - 07/02/17 11:00 am Jackeline Marshall CNP [Advanced Practice Nurse] - 07/12/17 9:45 am Prescriptions: OxyCODONE/APAP 10/325 [Percocet 10/325 MG] 1 each PO Q4HR PRN #10 tablet PRN Reason: Moderate-Severe pain Enoxaparin [Lovenox] 90 mg SQ Q12HR #6 syr Carbamide Peroxide 1 drop LEFT EAR BID #1 bottle Docusate [Colace] 100 mg PO BID #60 capsule Warfarin [Coumadin] 3 mg PO 1800 #10 tablet <Jacques Garcia - Last Filed: 06/30/17 11:33> Date of Encounter: 06/30/17 Objective Vital Signs - Last 8 Hours Temp Pulse Resp BP Pulse Ox 06/29/17 07:57 16 96 06/29/17 07:18 97.2 F L 63 14 113/72 96 06/29/17 03:49 97.7 F 71 17 106/66 93 Intake and Output 06/28/17 06/29/17 06/29/17 23:59 07:59 15:59 Intake Total 240 / 240 100 / 100 Output Total 0 / 0 Balance 240 / 240 100 / 100 Intake: Oral 240 / 240 100 / 100 Output: Urine 0 / 0 Other: Meal Lunch Percent of Meal Consumed 100% # Voids 1 1 Weight 91.371 kg Patient Weight 06/29/17 23:59 Weight 91.371 kg - Labs 06/29/17 03:52 06/29/17 03:52 Diabetes panel 06/29/17 06/29/17 Range/Units 03:52 03:52 Sodium 140 (136-145) mEq/L Potassium 3.8 (3.5-4.5) mEq/L Chloride 104 (98-109) mEq/L Carbon Dioxide 29 (19-29) mEq/L BUN 22 (8-26) mg/dL Creatinine 1.21 (0.72-1.25) mg/dL Glucose 114 H (70-99) mg/dL Calcium 8.4 L (8.6-10.8) mg/dL AST 30 (5-34) Units/L ALT 63 H (0-55) Units/L Alkaline Phosphatase 118 (38-126) Units/L Albumin 2.6 L (3.5-5.0) g/dL Calcium panel 06/29/17 06/29/17 Range/Units 03:52 03:52 Calcium 8.4 L (8.6-10.8) mg/dL Albumin 2.6 L (3.5-5.0) g/dL Pituitary panel 06/29/17 Range/Units 03:52 Sodium 140 (136-145) mEq/L Potassium 3.8 (3.5-4.5) mEq/L Chloride 104 (98-109) mEq/L Carbon Dioxide 29 (19-29) mEq/L BUN 22 (8-26) mg/dL Creatinine 1.21 (0.72-1.25) mg/dL Glucose 114 H (70-99) mg/dL Calcium 8.4 L (8.6-10.8) mg/dL Adrenal panel 06/29/17 06/29/17 Range/Units 03:52 03:52 Sodium 140 (136-145) mEq/L Potassium 3.8 (3.5-4.5) mEq/L Chloride 104 (98-109) mEq/L Carbon Dioxide 29 (19-29) mEq/L BUN 22 (8-26) mg/dL Creatinine 1.21 (0.72-1.25) mg/dL Glucose 114 H (70-99) mg/dL Calcium 8.4 L (8.6-10.8) mg/dL Total Bilirubin 0.7 (0.2-1.2) mg/dL AST 30 (5-34) Units/L ALT 63 H (0-55) Units/L Alkaline Phosphatase 118 (38-126) Units/L Albumin 2.6 L (3.5-5.0) g/dL - Attending Attestation I have personally performed a face to face evaluation on this patient. I have reviewed and agree with the care plan. History and Exam by me shows: The patient is seen and evaluated on morning rounds. We will get physical therapy and occupational therapy involved in his care. He may need to go to rehabilitation for further recovery. Incisions are clean and dry he is having no abdominal pain similar to his preoperative pain syndrome Jacques Garcia MD FACS
[2017-06-28] MEDS ORDERED: Ketorolac 15 MG/ML VIAL IVP SCH (12:00)
--- NOTE | 2017-06-28 12:26 | Internal Med Progress Note ---
Date of Encounter: 06/28/17 Time of Encounter: 09:00 - Assessment and plan (1) Symptomatic cholelithiasis Current Visit: Yes Status: Acute Assessment and plan: S/P laparoscopic cholecystectomy with Dr. Garcia on 06/26/2017 POD 2 Begin dilaudid tapering High risk due to continuous svetlana of opiates IV , d/c toradol, add percocet Monitor closely (2) Impacted ear wax Current Visit: Yes Status: Acute Assessment and plan: Start cerumol 1 drop bid Qualifiers: Laterality: left Qualified Code(s): H61.22 - Impacted cerumen, left ear (3) DVT prophylaxis Current Visit: Yes Status: Acute Assessment and plan: Resume home dose of warfarin INR 1.3 SCDs meanwhile (4) Afib Current Visit: Yes Status: Chronic Assessment and plan: HR controlled Resume home dose of warfarin, monitor INR Continue current meds-Digoxin/Metop/Diltiazem Qualifiers: Atrial fibrillation type: chronic Qualified Code(s): I48.2 - Chronic atrial fibrillation (5) Generalized weakness Current Visit: Yes Status: Acute Assessment and plan: PTOT recommends inpatient rehab SW to see Fall precautions Patient and daughters at the bedside educated (6) CKD (chronic kidney disease), stage III Current Visit: Yes Status: Chronic Assessment and plan: Cr stable at baseline (7) Coronary artery disease Current Visit: Yes Status: Chronic Assessment and plan: No CP,stable, continue home meds Qualifiers: Coronary Disease-Associated Artery/Lesion type: [place] artery [place] vs. transplanted heart: [place] heart Associated angina: without angina Qualified Code(s): I25.10 - Atherosclerotic heart disease of [place] coronary artery without angina pectoris (8) History of pulmonary embolus (PE) Current Visit: Yes Status: Chronic Assessment and plan: Resume Warfarin - Subjective Interval history: Seen and evaluated at bedside POD 2 s/p lap jason He has a PMH of HTN, Afib on warfarin, , CAD he continues to complains of pain, will begin to taper dilaudid Awaiting PTOT eval at time of review Also complaining of L ear pain and difficulty hearing - Constitutional Vitals: Temp Pulse Resp BP Pulse Ox 97.7 F 77 14 118/70 95 06/28/17 11:07 06/28/17 11:07 06/28/17 11:07 06/28/17 11:07 06/28/17 11:07 General appearance: Present: mild distress, A&O X 3, pleasant, answers questions appropriately - Head Head exam: Present: atraumatic, normocephalic - Eye Eye exam: Present: PERRL, conjuntiva pink, sclera anicteric Pupils: Present: PERRL - ENT Additional comments: L ear occluded by wax, unable to visualize TM - Neck Neck exam general surgery: Present: supple, trachea midline. Absent: lymphadenopathy - Respiratory Respiratory exam: Present: CTAB Additional comments: Chest wall scar - Cardiovascular Cardiovascular exam: Present: irregular rhythm, +S1, +S2. Absent: diastolic murmur, gallop, rubs, systolic murmur - GI/Abdominal GI/Abdominal exam: Present: normal bowel sounds, soft, no peritoneal signs. Absent: distended, tenderness - Extremities Exam Extremities exam: Present: warm, radial pulses palpable and symmetrical. Absent : calf tenderness, cyanotic, pedal edema Additional comments: Chronic venous stasis changes No pedal edema - Neurological Exam Neurological exam: Present: alert, CN II-XII intact, oriented X3, no focal deficits. Absent: pronater drift, facial droop, speech deficit - Skin Skin exam: Present: dry Internal Medicine: Result - Labs CBC & Chem 7: 06/28/17 06:02 06/28/17 06:02 Labs: Short CBC 06/28/17 Range/Units 06:02 WBC 11.7 H (4.3-11.1) K/mcL Hgb 13.0 D (12.9-16.9) g/dL Hct 38.9 (37.5-50.1) % Plt Count 144 (140-400) K/mcL Neutrophils # 8.8 (1.6-8.9) K/mcL BMP 06/28/17 06:02 Sodium 141 Potassium 3.7 Chloride 105 Carbon Dioxide 29 BUN 20 Creatinine 1.12 Glucose 119 H Calcium 8.4 L - ABG Interpretation ABG results: PT/INR, D-dimer PT 14.2 Seconds (9.4-12.1) H 06/28/17 06:02 - VTE Documentation of Mechanical Device: Intermittent pneumatic compression device Consult Discharge Plan - Plan Instructions: Laparoscopic Cholecystectomy (DC) Additional Instructions: General Surgical Discharge Instructions 1. No pushing, pulling, or lifting greater than 15 lbs for two weeks. 2. You may shower beginning today, but no tub baths, soaking, or swimming for 2 weeks. 3. You may resume driving when you are off narcotics and are safe to react in a car. 4. Take narcotics as directed. Do not take more narcotics then directed and do not share your narcotics with any other person. Do not drink alcohol while on narcotics. 5. Take stool softeners (Colace) or a water based laxative (Miralax) while taking narcotics. You may hold for loose stools. 6. Report any fevers greater than 100.5F, increase abdominal discomfort, drainage that looks like pus, increased redness or pain at the surgical site, or any vomiting. 7. Report any pain in the calves, shortness of breath, or rapid heartbeat. 8. Follow-up in the office as directed. 9. If you were prescribed antibiotics, do not stop them without talking to your provider. Referrals: Jackeline Marshall CNP [Advanced Practice Nurse] - 07/12/17 9:30 am Gregorio Starr DO [Primary Care Provider] - Prescriptions: Docusate [Colace] 100 mg PO BID #60 capsule HYDROcodone/Acet 5/325 mg [[place] 5-325 mg] 1 tab PO Q6H PRN #28 tab PRN Reason: Pain
[2017-06-28] MEDS ORDERED: Warfarin perPT PO PRN (18:00)
[2017-06-28] MEDS ORDERED: *HR* Warfarin 3 MG TABLET PO ONE (18:00)
[2017-06-28] MEDS: *HR* OxyCODONE/APAP 10/325 TABLET PO PRN ×2 (18:22→22:46)
[2017-06-28] MEDS: Carbamide Peroxide 150 DROP/15 ML BOTTLE LEFT EAR SCH ×2 (18:23→20:04)
[2017-06-28] MEDS: *HR* Digoxin 0.125 MG TABLET PO SCH (20:00)
[2017-06-29] MEDS: *HR* OxyCODONE/APAP 10/325 TABLET PO PRN ×3 (03:59→13:15)
[2017-06-29 04:58] LABS: INR 1.2; Prothrombin Time 13.1 Seconds (9.4-12.1)
[2017-06-29 04:59] LABS: Albumin 2.6 g/dL (3.5-5.0); Albumin/Globulin Ratio 0.8 (1.1-2.2); BUN/Creatinine Ratio 18 (6-26); Bilirubin,Direct 0.3 mg/dL (0.0-0.5); Bilirubin,Indirect 0.4 mg/dL (0.0-1.2); Bilirubin,Total 0.7 mg/dL (0.2-1.2); Blood Urea Nitrogen 22 mg/dL (8-26); Calcium 8.4 mg/dL (8.6-10.8); Carbon Dioxide 29 mEq/L (19-29); Chloride 104 mEq/L (98-109); Globulin 3.3 g/dL (2.4-3.5); Glucose 114 mg/dL (70-99); Osmolality,Calculated 294 (280-300); Potassium 3.8 mEq/L (3.5-4.5); Sodium 140 mEq/L (136-145); Total Protein 5.9 g/dL (6.0-8.3); eGFR For African Americans > 60 (> 60); eGFR For Non-African Americans 59 (> 60)
[2017-06-29 05:36] LABS: Basophils % 0.3 %; Eosinophils # 0.2 K/mcL (0.0-0.6); Eosinophils % 2.1 %; Hematocrit 39.5 % (37.5-50.1); Hemoglobin 13.1 g/dL (12.9-16.9); Immature Granulocytes % 0.4 % (0-4); Lymphocytes # 2.6 K/mcL (0.6-4.6); Mean Corpuscular HGB Conc 33.2 g/dL (31.6-35.5); Mean Corpuscular Volume 96.3 fL (83.0-100.0); Mean Platelet Volume 10.7 fL (9.4-12.4); Monocytes # 0.6 K/mcL (0.0-1.3); Monocytes % 6.3 %; Neutrophils # 6.5 K/mcL (1.6-8.9); Platelet Count 174 K/mcL (140-400); Red Cell Distribution Width 14.5 % (11.5-14.5); Segmented Neutrophils % 64.9 %
[2017-06-29] MEDS: Budesonide/Formoterol 80/4.5 MDI IH SCH (07:57)
[2017-06-29] MEDS: Lactobacillus 1 EACH CAP.SPRINK PO SCH (08:01)
[2017-06-29] MEDS: Diltiazem CD (24hr) 240 MG CAPSULE PO SCH (08:01)
[2017-06-29] MEDS: Metoprolol XL (24 HR) Succ 25 MG TAB.ER.24H PO SCH (08:01)
[2017-06-29] MEDS: Aspirin Enteric Coated 81 MG Tablet PO SCH (08:02)
[2017-06-29] MEDS: Gabapentin 100 MG CAPSULE PO SCH (08:02)
[2017-06-29] MEDS: ALPRAZolam 0.5 MG TABLET PO SCH (08:02)
[2017-06-29] MEDS: Carbamide Peroxide 150 DROP/15 ML BOTTLE LEFT EAR SCH (08:02)
[2017-06-29] MEDS ORDERED: *HR* HYDROmorphone (PF) 1 MG/ML SYRINGE IVP PRN (08:07)
--- NOTE | 2017-06-29 09:27 | Physician Discharge Referral ---
Home Health/Hosp Referral Info Transfer to: Home Health Attending Provider: BRANDO Provider in Charge Post Discharge: PCP - Diagnosis (1) Symptomatic cholelithiasis Priority: Primary Status: Resolved (2) Impacted ear wax Priority: Primary Status: Acute (3) DVT prophylaxis Priority: Primary Status: Acute (4) Afib Priority: Secondary Status: Chronic (5) Generalized weakness Priority: Primary Status: Acute (6) CKD (chronic kidney disease), stage III Priority: Secondary Status: Chronic (7) Coronary artery disease Priority: Secondary Status: Chronic (8) History of pulmonary embolus (PE) Priority: Secondary Status: Chronic - Respiratory Orders Smoking Cessation: Smoking cessation has been advised. For more information, call the [employer] Quit Line at 1-360-HOKW-NOW. - Diet/Nutrition Diet/Nutrition Orders: Cardiac - Activity Activity Orders: Up ad sumeet - Services Needed Following services are medically necessary services: Nursing, Home Health Aide, Physical Therapy, Occupational Therapy - Transfer Medications Prescriptions: OxyCODONE/APAP 10/325 [Percocet 10/325 MG] 1 each PO Q4HR PRN #10 tablet PRN Reason: Moderate-Severe pain Enoxaparin [Lovenox] 90 mg SQ Q12HR #6 syr Carbamide Peroxide 1 drop LEFT EAR BID #1 bottle Docusate [Colace] 100 mg PO BID #60 capsule Warfarin [Coumadin] 3 mg PO 1800 #10 tablet Home Medications: Albuterol Neb [Proventil Neb] 2.5 mg IH 2-4XD PRN 06/15/15 [History] Alprazolam [Xanax] 0.5 mg PO TID 06/15/15 [History] Aspirin Enteric Coated [Aspirin EC] 81 mg PO DAILY 06/15/15 [History] Atorvastatin [Lipitor] 40 mg PO QAM 06/15/15 [History] Digoxin [Lanoxin] 0.125 mg PO HS 06/15/15 [History] Diltiazem HCl [Diltiazem 24Hr Cd] 240 mg PO DAILY 06/15/15 [History] Furosemide [Lasix] 40 mg PO BID 06/15/15 [History] Gabapentin [Neurontin] 200 mg PO BID 06/15/15 [History] Metoprolol XL (24 HR) Succ [Toprol XL] 25 mg PO DAILY 06/15/15 [History] Omeprazole [PriLOSEC] 20 mg PO BID 06/15/15 [History] Tamsulosin [Flomax] 0.4 mg PO HS 06/15/15 [History] Morphine Immed Rel [Morphine Sulfate] 30 mg PO BID PRN #0 08/19/15 [History] Fluticasone/Vilanterol [Breo Ellipta 100-25 Mcg INH] 1 puff IH DAILY 12/05/16 [ History] Terazosin [Hytrin] 1 mg PO HS 12/05/16 [History] Vit C/E/Zn/Coppr/Lutein/Zeaxan [Preservision Areds 2 Softgel] 1 tab PO BID 12/05 [History] Cyanocobalamin (Vitamin B-12) [Vitamin B12] 1,000 mcg PO BID 06/14/17 [History] Lactobacillus Acidophilus [Acidophilus Lactobacillus] 1 tab PO DAILY 06/24/17 [ History] Docusate [Colace] 100 mg PO BID #60 capsule 06/28/17 [Rx] Carbamide Peroxide 1 drop LEFT EAR BID #1 bottle 06/29/17 [Rx] Enoxaparin [Lovenox] 90 mg SQ Q12HR #6 syr 06/29/17 [Rx] OxyCODONE/APAP 10/325 [Percocet 10/325 MG] 1 each PO Q4HR PRN #10 tablet [Rx] Warfarin [Coumadin] 3 mg PO 1800 #10 tablet 06/29/17 [Rx] Allergies/Adverse Reactions: 3 Allergy/AdvReac Type Severity Reaction Status Date / Time Amoxicillin [From Augmentin] Allergy See Verified 06/24/17 14:46 Comments clavulanic acid Allergy See Verified 06/24/17 14:46 [From Augmentin] Comments Metolazone Allergy See Verified 06/24/17 14:46 Comments tobramycin Allergy See Verified 06/24/17 14:46 Comments Certification: Further, I certify that my clinical findings support that this patient is homebound (i.e. absences from home require considerable and taxing effort and are for medical reasons or anabaptism services or infrequently or short duration when for other reasons) because: Homebound Reason: Patient requires assistance of a person or device to safely leave home Attestation: My signature below is to certify that this patient is under my care and that I, or nurse practitioner, or a physician's sourcing assistant working with me, has a face-to -face encounter with this patient.
--- NOTE | 2017-06-29 09:28 | Discharge Summary ---
Date of Encounter: 06/29/17 Time of Encounter: 09:27 - Discharge Diagnosis (1) Symptomatic cholelithiasis Priority: Primary Status: Resolved (2) Impacted ear wax Priority: Primary Status: Acute Qualifiers: Laterality: left Qualified Code(s): H61.22 - Impacted cerumen, left ear (3) DVT prophylaxis Priority: Primary Status: Acute (4) Afib Priority: Secondary Status: Chronic Qualifiers: Atrial fibrillation type: chronic Qualified Code(s): I48.2 - Chronic atrial fibrillation (5) Generalized weakness Priority: Secondary Status: Acute (6) CKD (chronic kidney disease), stage III Priority: Secondary Status: Chronic (7) Coronary artery disease Priority: Secondary Status: Chronic Qualifiers: Coronary Disease-Associated Artery/Lesion type: [place] artery [place] vs. transplanted heart: [place] heart Associated angina: without angina Qualified Code(s): I25.10 - Atherosclerotic heart disease of [place] coronary artery without angina pectoris (8) History of pulmonary embolus (PE) Priority: Secondary Status: Chronic - Discharge Medications Prescriptions: OxyCODONE/APAP 10/325 [Percocet 10/325 MG] 1 each PO Q4HR PRN #10 tablet PRN Reason: Moderate-Severe pain Enoxaparin [Lovenox] 90 mg SQ Q12HR #6 syr Carbamide Peroxide 1 drop LEFT EAR BID #1 bottle Docusate [Colace] 100 mg PO BID #60 capsule Warfarin [Coumadin] 3 mg PO 1800 #10 tablet Home Medications: Albuterol Neb [Proventil Neb] 2.5 mg IH 2-4XD PRN 06/15/15 [History] Alprazolam [Xanax] 0.5 mg PO TID 06/15/15 [History] Aspirin Enteric Coated [Aspirin EC] 81 mg PO DAILY 06/15/15 [History] Atorvastatin [Lipitor] 40 mg PO QAM 06/15/15 [History] Digoxin [Lanoxin] 0.125 mg PO HS 06/15/15 [History] Diltiazem HCl [Diltiazem 24Hr Cd] 240 mg PO DAILY 06/15/15 [History] Furosemide [Lasix] 40 mg PO BID 06/15/15 [History] Gabapentin [Neurontin] 200 mg PO BID 06/15/15 [History] Metoprolol XL (24 HR) Succ [Toprol XL] 25 mg PO DAILY 06/15/15 [History] Omeprazole [PriLOSEC] 20 mg PO BID 06/15/15 [History] Tamsulosin [Flomax] 0.4 mg PO HS 06/15/15 [History] Morphine Immed Rel [Morphine Sulfate] 30 mg PO BID PRN #0 08/19/15 [History] Fluticasone/Vilanterol [Breo Ellipta 100-25 Mcg INH] 1 puff IH DAILY 12/05/16 [ History] Terazosin [Hytrin] 1 mg PO HS 12/05/16 [History] Vit C/E/Zn/Coppr/Lutein/Zeaxan [Preservision Areds 2 Softgel] 1 tab PO BID 12/05 [History] Cyanocobalamin (Vitamin B-12) [Vitamin B12] 1,000 mcg PO BID 06/14/17 [History] Lactobacillus Acidophilus [Acidophilus Lactobacillus] 1 tab PO DAILY 06/24/17 [ History] Docusate [Colace] 100 mg PO BID #60 capsule 06/28/17 [Rx] Carbamide Peroxide 1 drop LEFT EAR BID #1 bottle 06/29/17 [Rx] Enoxaparin [Lovenox] 90 mg SQ Q12HR #6 syr 06/29/17 [Rx] OxyCODONE/APAP 10325 [Percocet 10/325 MG] 1 each PO Q4HR PRN #10 tablet [Rx] Warfarin [Coumadin] 3 mg PO 1800 #10 tablet 06/29/17 [Rx] Allergies/Adverse Reactions: 3 Allergy/AdvReac Type Severity Reaction Status Date / Time Amoxicillin [From Augmentin] Allergy See Verified 06/24/17 14:46 Comments clavulanic acid Allergy See Verified 06/24/17 14:46 [From Augmentin] Comments Metolazone Allergy See Verified 06/24/17 14:46 Comments tobramycin Allergy See Verified 06/24/17 14:46 Comments Procedures/tests Complete & Pending: Procedures Performed prior 72 hours Category Date Time Status EKG [ECG 12 lead ECG] [ECG] Stat Y 06/27/17 00:45 Completed Date of admission: 06/24/17 17:01 Primary care physician: Gregorio Starr Consults: 06/24/17 17:33 Consult to Occupational Therapy [CONS] Routine Comment: Evaluate, develop and implement POC Reason for Consult: weakness Consult to Physical Therapy [CONS] Routine Comment: Evaluate, develop and implement POC Reason for Consult: weakness 06/24/17 17:54 Consult to Surgery [CONS] Routine Consulting Provider: [facility] Reason for Consult: cholelithisis. Patient requests Dr. Jacques Garcia Call Completed: No 06/24/17 18:25 Consult to Loss Control Engineer [CONS] Routine Reason for SW Consult: pt is requesting HH is possible 06/25/17 09:47 Consult to Cardiology [CONS] Stat Comment: Dr. Whitt Consulting Provider: Cardiology [facility] Reason for Consult: Preoperative risk stratification in the setting of history of ASHD, CABG, PCI, atrial fibrillation, and chronic anticoagulation and anticoagulation recommendations Time Notified: 09:49 Call Completed: Yes Discharging clinician: Luis Fernando Hicks Anticipated date of discharge: 06/29/17 - Patient Status Disposition: Home Health Service Condition: Fair Functional capacity at discharge: independent ambulation Overall status at discharge: patient is progressing back to baseline - Discharge Instructions Instructions: Laparoscopic Cholecystectomy (DC) Follow Up With: Viky Mcfadden CNP [Partnered Physician] - 07/02/17 11:00 am Jackeline Marshall CNP [Advanced Practice Nurse] - 07/12/17 9:45 am Additional Instructions: General Surgical Discharge Instructions 1. No pushing, pulling, or lifting greater than 15 lbs for two weeks. 2. You may shower beginning today, but no tub baths, soaking, or swimming for 2 weeks. 3. You may resume driving when you are off narcotics and are safe to react in a car. 4. Take narcotics as directed. Do not take more narcotics then directed and do not share your narcotics with any other person. Do not drink alcohol while on narcotics. 5. Take stool softeners (Colace) or a water based laxative (Miralax) while taking narcotics. You may hold for loose stools. 6. Report any fevers greater than 100.5F, increase abdominal discomfort, drainage that looks like pus, increased redness or pain at the surgical site, or any vomiting. 7. Report any pain in the calves, shortness of breath, or rapid heartbeat. 8. Follow-up in the office as directed. 9. If you were prescribed antibiotics, do not stop them without talking to your provider. Interval History: See below Hospital course: Mr. Goldberg is a 72 year old male admitted for RUQ pain due to biliary cholic He is POD 3 s/p lap jason He has a PMH of Afib /PE on Coumadin, CKD III, CAD He also noted to have generalized weakness and deconditioning on admission He has been seen by [facility] with recommendations for inpatient rehab This morning, he is seen and evaluated at bedside, he has no new complains His abdominal pain has significantly improved and he is tolerating orally, he is minimally ambulatory he denies new complains today Patient is stable to be discharged on his home meds, as well as LOvenox for bridging, he states he has had to use lovenox in the past and is comfortable injecting himself He has a follow up with PCP on Monday 07/02 for INR check Of note, patient vehemently refused to be placed in rehab He understands the risks of fall, fractures, bleeds, worsening morbidity due to deconditioning, he is AAOX3 and has decisional capacity, he is discharged with home care Daughters are very much involved in his care. Follow up with surgery as O-P,, as well as PCP Plan of care discussed, verbalized understanding Flu vaccine recommended - Time Spent with Patient Total time spent providing and/or coordinating discharge services: Greater than 30 minutes - Constitutional Vitals: Temp Pulse Resp BP Pulse Ox 97.2 F L 63 16 113/72 96 06/29/17 07:18 06/29/17 07:18 06/29/17 07:57 06/29/17 07:18 06/29/17 07:57 General appearance: Present: A&O X 3, pleasant, no acute distress, answers questions appropriately - Head Head exam: Present: atraumatic, normocephalic - Eye Eye exam: Present: PERRL, conjuntiva pink, sclera anicteric Pupils: Present: PERRL - Neck Neck exam general surgery: Present: supple, trachea midline. Absent: lymphadenopathy - Respiratory Respiratory exam: Present: CTAB. Absent: accessory muscle use, rales, rhonchi, wheezes - Cardiovascular Cardiovascular exam: Present: RRR, +S1, +S2. Absent: diastolic murmur, gallop, rubs, systolic murmur - GI/Abdominal GI/Abdominal exam: Present: normal bowel sounds, soft, no peritoneal signs. Absent: distended, tenderness - Extremities Exam Extremities exam: Present: warm, radial pulses palpable and symmetrical. Absent : calf tenderness, cyanotic, pedal edema - Neurological Exam Neurological exam: Present: alert, CN II-XII intact, oriented X3, no focal deficits. Absent: pronater drift, facial droop, speech deficit - Skin Skin exam: Present: dry, intact - VTE Documentation of Mechanical Device: Intermittent pneumatic compression device
[2017-06-29 11:51] VITALS: BP 114/71
[2017-06-29] MEDS ORDERED: *HR* Warfarin 3 MG TABLET PO ONE (18:00)
== END 2017-06-29 15:32 | disposition home health service (06) ==
LOC: EMEROO 14:44 → 3ANU 14:44 → SUATTDRO 17:01 → 3ANU 17:38
PROVIDERS: ADMIT Hospitalist; ATTEND Internal Medicine

== ENCOUNTER 2019-09-11 17:22 | Observation (INO) ==
[2019-09-11 20:46] LABS: INR 3.4; Prothrombin Time 38.5 Seconds (9.4-12.1)
[2019-09-11 20:58] LABS: Albumin/Globulin Ratio 1.4 (1.1-2.2); Bilirubin,Total 0.9 mg/dL (0.3-1.0); Calcium 9.8 mg/dL (8.6-10.3); Globulin 2.9 g/dL (2.4-3.5); Potassium 4.2 mEq/L (3.5-5.1); Total Protein 6.9 g/dL (6.4-8.9)
[2019-09-11] MEDS ORDERED: *HR* OxyCODONE/APAP 7.5/325 TABLET PO STA (21:00)
[2019-09-11 21:06] LABS: Basophils % 0.3 %; Eosinophils # 0.2 K/mcL (0.0-0.6); Eosinophils % 1.6 %; Hematocrit 46.7 % (37.5-50.1); Hemoglobin 15.2 g/dL (12.9-16.9); Immature Granulocytes % 0.4 % (0-4); Lymphocytes # 1.8 K/mcL (0.6-4.6); Lymphocytes % 17.8 %; Mean Corpuscular HGB Conc 32.5 g/dL (31.6-35.5); Mean Corpuscular Hemoglobin 31.9 pg (28.0-33.3); Mean Corpuscular Volume 97.9 fL (83.0-100.0); Mean Platelet Volume 10.7 fL (9.4-12.4); Monocytes # 0.8 K/mcL (0.0-1.3); Monocytes % 7.6 %; Neutrophils # 7.3 K/mcL (1.6-8.9); Platelet Count 218 K/mcL (140-400); Red Blood Count 4.77 M/mcL (4.19-5.50); Red Cell Distribution Width 13.8 % (11.5-14.5); Segmented Neutrophils % 72.3 %
[2019-09-11 21:19] LABS: Bilirubin,Urine Negative (Negative); Blood,Urine Negative (Negative); Clarity,Urine Clear (Clear); Color,Urine Yellow (Yellow); Glucose,Urine (UA) Normal (Normal); Ketones,Urine Negative (Negative); Leukocyte Esterase,Urine Negative (Negative); Nitrite,Urine Negative (Negative); PH,Urine 7.5 pH Units (5.0-8.0); Protein,Urine Negative (Neg-Trace); Specific Gravity,Urine 1.014 (1.010-1.025); Urobilinogen,Urine Normal (Normal)
[2019-09-11] MEDS ORDERED: *HR* HYDROmorphone (PF) 1 MG/ML SYRINGE IVP STA (22:20)
[2019-09-11] MEDS ORDERED: 0.9 % Sodium Chloride 1,000 ML IVC ONE (23:24)
[2019-09-12] MEDS ORDERED: Dextrose Gel 15 GM/37.5 ML TUBE PO PRN ×2 (02:46)
[2019-09-12] MEDS ORDERED: *HR* Dextrose 50 % in Water (Syg) 50 ML SYRINGE IVP PRN (02:46)
[2019-09-12] MEDS ORDERED: D5% in Water 1,000 ML IVC PRN (02:46)
[2019-09-12] MEDS ORDERED: Naloxone 0.4 MG/ML INJ IVP PRN ×2 (02:46→02:50)
[2019-09-12] MEDS ORDERED: Albuterol 2.5 MG/3 ML NEBULIZER IH PRN (02:47)
[2019-09-12] MEDS: *HR* OxyCODONE/APAP 10/325 TABLET PO PRN ×5 (03:41→21:19)
[2019-09-12 06:23] LABS: INR 3.9
[2019-09-12 06:39] LABS: Albumin 3.4 g/dL (3.5-5.7); Albumin/Globulin Ratio 1.4 (1.1-2.2); Bilirubin,Total 0.6 mg/dL (0.3-1.0); Calcium 8.8 mg/dL (8.6-10.3); Chol/HDL Ratio 3.1 (0-4.9); Globulin 2.5 g/dL (2.4-3.5); Magnesium 1.9 mg/dL (1.6-2.6); Phosphorous 3.8 mg/dL (2.7-4.5); Potassium 3.9 mEq/L (3.5-5.1); Total Protein 5.9 g/dL (6.4-8.9)
[2019-09-12 06:41] LABS: Basophils % 0.5 %; Eosinophils # 0.2 K/mcL (0.0-0.6); Eosinophils % 2.1 %; Hematocrit 40.8 % (37.5-50.1); Immature Granulocytes % 0.5 % (0-4); Lymphocytes # 1.9 K/mcL (0.6-4.6); Lymphocytes % 23.5 %; Mean Corpuscular HGB Conc 32.6 g/dL (31.6-35.5); Mean Corpuscular Hemoglobin 31.4 pg (28.0-33.3); Mean Corpuscular Volume 96.5 fL (83.0-100.0); Mean Platelet Volume 10.7 fL (9.4-12.4); Monocytes # 0.7 K/mcL (0.0-1.3); Monocytes % 9.3 %; Neutrophils # 5.1 K/mcL (1.6-8.9); Platelet Count 199 K/mcL (140-400); Red Blood Count 4.23 M/mcL (4.19-5.50); Segmented Neutrophils % 64.1 %
[2019-09-12 06:44] LABS: Hemoglobin 13.3 g/dL (12.9-16.9)
[2019-09-12 06:47] LABS: Prothrombin Time 44.1 Seconds (9.4-12.1)
[2019-09-12] MEDS: Insulin LISPRO 300 UNITS/3 ML VIAL SQ SCH ×3 (07:33→17:22)
[2019-09-12] MEDS: Gabapentin 100 MG CAPSULE PO SCH ×2 (08:14→21:19)
[2019-09-12] MEDS: Furosemide 40 MG TABLET PO SCH ×2 (08:15→17:22)
[2019-09-12] MEDS: Aspirin Enteric Coated 81 MG Tablet PO SCH (08:15)
[2019-09-12] MEDS: Diltiazem CD (24hr) 240 MG CAPSULE PO SCH (08:32)
[2019-09-12 08:40] LABS: Estimated Average Glucose 146 mg/dl
[2019-09-12] MEDS ORDERED: Metoprolol XL (24 HR) Succ 25 MG TAB.ER.24H PO SCH (09:00)
[2019-09-13] MEDS: *HR* OxyCODONE/APAP 10/325 TABLET PO PRN ×4 (02:40→20:19)
[2019-09-13] MEDS: Insulin LISPRO 300 UNITS/3 ML VIAL SQ SCH ×3 (08:53→16:07)
[2019-09-13] MEDS ORDERED: (Fluticasone/Vilanterol [Breo Ellipta 100-25 Mcg Inh]) IH SCH (09:00)
[2019-09-13] MEDS: Gabapentin 100 MG CAPSULE PO SCH ×2 (09:17→20:17)
[2019-09-13] MEDS: Aspirin Enteric Coated 81 MG Tablet PO SCH (09:18)
[2019-09-13] MEDS: ALPRAZolam 0.5 MG TABLET PO SCH ×2 (09:18→20:17)
[2019-09-13] MEDS: Lactobacillus 1 EACH CAP.SPRINK PO SCH (09:18)
[2019-09-13] MEDS: Diltiazem CD (24hr) 240 MG CAPSULE PO SCH (09:18)
[2019-09-13] MEDS: Furosemide 40 MG TABLET PO SCH ×2 (09:19→16:11)
[2019-09-13] MEDS: Metoprolol XL (24 HR) Succ 50 MG TAB.ER.24H PO SCH (09:20)
[2019-09-13 17:44] LABS: Hematocrit 42.5 % (37.5-50.1); Mean Corpuscular HGB Conc 32.9 g/dL (31.6-35.5); Mean Corpuscular Hemoglobin 31.3 pg (28.0-33.3); Mean Corpuscular Volume 95.1 fL (83.0-100.0); Mean Platelet Volume 10.4 fL (9.4-12.4); Platelet Count 196 K/mcL (140-400); Red Blood Count 4.47 M/mcL (4.19-5.50); Red Cell Distribution Width 13.7 % (11.5-14.5); White Blood Count 6.7 K/mcL (4.3-11.1)
[2019-09-13 17:45] LABS: INR 2.4; Prothrombin Time 27.6 Seconds (9.4-12.1)
[2019-09-13 17:59] LABS: Calcium 8.7 mg/dL (8.6-10.3); Potassium 4.1 mEq/L (3.5-5.1)
[2019-09-13] MEDS: Budesonide/Formoterol 160/4.5 1 PUFF INH IH SCH (23:03)
[2019-09-14] MEDS: *HR* OxyCODONE/APAP 10/325 TABLET PO PRN ×3 (05:05→22:53)
[2019-09-14 08:16] LABS: Hematocrit 40.3 % (37.5-50.1); Hemoglobin 13.9 g/dL (12.9-16.9); Mean Corpuscular HGB Conc 34.5 g/dL (31.6-35.5); Mean Corpuscular Hemoglobin 32.5 pg (28.0-33.3); Mean Corpuscular Volume 94.2 fL (83.0-100.0); Mean Platelet Volume 10.7 fL (9.4-12.4); Platelet Count 202 K/mcL (140-400); Red Blood Count 4.28 M/mcL (4.19-5.50); Red Cell Distribution Width 13.7 % (11.5-14.5); White Blood Count 7.6 K/mcL (4.3-11.1)
[2019-09-14 08:17] LABS: INR 1.9; Prothrombin Time 21.1 Seconds (9.4-12.1)
[2019-09-14] MEDS: Insulin LISPRO 300 UNITS/3 ML VIAL SQ SCH ×3 (08:30→17:46)
[2019-09-14] MEDS: Diltiazem CD (24hr) 240 MG CAPSULE PO SCH (08:30)
[2019-09-14] MEDS: ALPRAZolam 0.5 MG TABLET PO SCH ×2 (08:30→19:43)
[2019-09-14] MEDS: Lactobacillus 1 EACH CAP.SPRINK PO SCH (08:30)
[2019-09-14] MEDS: Metoprolol XL (24 HR) Succ 50 MG TAB.ER.24H PO SCH (08:30)
[2019-09-14] MEDS: Gabapentin 100 MG CAPSULE PO SCH ×2 (08:30→19:43)
[2019-09-14] MEDS: Furosemide 40 MG TABLET PO SCH (08:30)
[2019-09-14] MEDS: Aspirin Enteric Coated 81 MG Tablet PO SCH (08:31)
[2019-09-14 08:32] LABS: Calcium 8.9 mg/dL (8.6-10.3)
[2019-09-14] MEDS: Budesonide/Formoterol 160/4.5 1 PUFF INH IH SCH ×2 (10:56→21:50)
[2019-09-14] MEDS ORDERED: Warfarin perPT PO PRN (18:00)
[2019-09-14] MEDS ORDERED: *HR* Warfarin 3 MG TABLET PO ONE (18:00)
[2019-09-15] MEDS: *HR* OxyCODONE/APAP 10/325 TABLET PO PRN ×3 (04:34→21:56)
[2019-09-15 06:29] LABS: INR 1.5; Prothrombin Time 17.1 Seconds (9.4-12.1)
[2019-09-15 06:45] LABS: Potassium 4.1 mEq/L (3.5-5.1)
[2019-09-15] MEDS: Budesonide/Formoterol 160/4.5 1 PUFF INH IH SCH ×2 (08:00→19:46)
[2019-09-15] MEDS: Insulin LISPRO 300 UNITS/3 ML VIAL SQ SCH ×3 (08:16→17:40)
[2019-09-15] MEDS: Diltiazem CD (24hr) 240 MG CAPSULE PO SCH (08:17)
[2019-09-15] MEDS: Lactobacillus 1 EACH CAP.SPRINK PO SCH (08:18)
[2019-09-15] MEDS: ALPRAZolam 0.5 MG TABLET PO SCH ×2 (08:19→21:17)
[2019-09-15] MEDS: Metoprolol XL (24 HR) Succ 50 MG TAB.ER.24H PO SCH (08:19)
[2019-09-15] MEDS: Gabapentin 100 MG CAPSULE PO SCH ×2 (08:19→21:17)
[2019-09-15] MEDS: Aspirin Enteric Coated 81 MG Tablet PO SCH (08:19)
[2019-09-16] MEDS: *HR* OxyCODONE/APAP 10/325 TABLET PO PRN ×2 (05:00→13:29)
[2019-09-16] MEDS: Budesonide/Formoterol 160/4.5 1 PUFF INH IH SCH (07:25)
[2019-09-16] MEDS: Insulin LISPRO 300 UNITS/3 ML VIAL SQ SCH ×2 (09:12→13:30)
[2019-09-16] MEDS: Metoprolol XL (24 HR) Succ 50 MG TAB.ER.24H PO SCH (10:10)
[2019-09-16] MEDS: Gabapentin 100 MG CAPSULE PO SCH (10:10)
[2019-09-16] MEDS: Aspirin Enteric Coated 81 MG Tablet PO SCH (10:11)
[2019-09-16] MEDS: Lactobacillus 1 EACH CAP.SPRINK PO SCH (10:11)
[2019-09-16] MEDS: ALPRAZolam 0.5 MG TABLET PO SCH (10:11)
[2019-09-16] MEDS: Diltiazem CD (24hr) 240 MG CAPSULE PO SCH (10:11)
[2019-09-16 11:11] VITALS: BP 115/72
[2019-09-16 13:48] LABS: INR 1.4; Prothrombin Time 15.8 Seconds (9.4-12.1)
[2019-09-16] MEDS ORDERED: *HR* Warfarin 5 MG TABLET PO ONE (18:00)
== END 2019-09-16 16:48 ==
LOC: EMEROOARM 17:22 → 3NENU 17:22 → SUATTDRO 22:59 → 3NENU 09-12 00:13 → CDU 09-15 09:46
PROVIDERS: ADMIT Internal Medicine; ATTEND Internal Medicine

== ENCOUNTER 2020-04-03 19:11 | Inpatient (IN) ==
[2020-04-03] MEDS ORDERED: Naloxone 0.4 MG/ML INJ IVP PRN (23:57)
[2020-04-04] MEDS: DilTIAZem 50 MG/50 ML IV.SOLN IVC SCH ×3 (00:14→18:19)
[2020-04-04] MEDS ORDERED: D5% in Water 1,000 ML IVC PRN (01:00)
[2020-04-04] MEDS ORDERED: *HR* Dextrose 50 % in Water (Vial) 50 ML VIAL IVP PRN (01:00)
[2020-04-04] MEDS ORDERED: Dextrose Gel 15 GM/37.5 ML TUBE PO PRN ×2 (01:00)
[2020-04-04] MEDS: Insulin LISPRO 300 UNITS/3 ML VIAL SQ SCH ×4 (01:25→16:46)
[2020-04-04 01:28] LABS: Bacteria,Urine Few per hpf (None-Few); Bilirubin,Urine Negative (Negative); Blood,Urine Large (Negative); Clarity,Urine Clear (Clear); Color,Urine Yellow (Yellow); Glucose,Urine (UA) Normal (Normal); Hyaline Casts,Urine Few per lpf (None Seen); Ketones,Urine Negative (Negative); Leukocyte Esterase,Urine Negative (Negative); Mucus,Urine Few per lpf (None-Few); Nitrite,Urine Negative (Negative); Protein,Urine 100 mg/dL (Neg-Trace); Specific Gravity,Urine 1.025 (1.010-1.025); Squamous Epithelial Cell,Urine Few per hpf (None-Few); Urobilinogen,Urine Normal (Normal); WBC,Urine 0-3 per hpf (0-3)
[2020-04-04] MEDS ORDERED: ALPRAZolam 0.5 MG TABLET PO ONE (01:46)
[2020-04-04] MEDS ORDERED: Perflutren Lipid Microsphere 1.3 ML in 0.9 % Sodium Chloride 8.7 ML IVP PRN (02:47)
[2020-04-04 04:37] LABS: Basophils % 0.2 %; Hematocrit 41.6 % (37.5-50.1); Hemoglobin 13.1 g/dL (12.9-16.9); Immature Granulocytes % 1.4 % (0-4); Lymphocytes # 1.4 K/mcL (0.6-4.6); Lymphocytes % 5.5 %; Mean Corpuscular HGB Conc 31.5 g/dL (31.6-35.5); Mean Corpuscular Hemoglobin 31.3 pg (28.0-33.3); Mean Corpuscular Volume 99.3 fL (83.0-100.0); Mean Platelet Volume 10.8 fL (9.4-12.4); Monocytes # 0.7 K/mcL (0.0-1.3); Monocytes % 2.9 %; Neutrophils # 22.4 K/mcL (1.6-8.9); Platelet Count 172 K/mcL (140-400); Red Blood Count 4.19 M/mcL (4.19-5.50); Red Cell Distribution Width 14.2 % (11.5-14.5); White Blood Count 24.9 K/mcL (4.3-11.1)
[2020-04-04 04:38] LABS: Basophils # 0.1 K/mcL (0.0-0.2)
[2020-04-04 04:44] LABS: INR 1.5; Prothrombin Time 16.6 Seconds (9.4-12.1)
[2020-04-04 04:47] LABS: Activated Partial Thrombo Time 22.4 Seconds (26.0-36.0)
[2020-04-04 04:58] LABS: Albumin 3.2 g/dL (3.5-5.7); Albumin/Globulin Ratio 1.3 (1.1-2.2); Bilirubin,Total 0.8 mg/dL (0.3-1.0); Calcium 8.1 mg/dL (8.6-10.3); Globulin 2.5 g/dL (2.4-3.5); Magnesium 1.6 mg/dL (1.6-2.6); Potassium 4.3 mEq/L (3.5-5.1); Total Protein 5.7 g/dL (6.4-8.9)
[2020-04-04] MEDS ORDERED: Vancomycin 1,750 MG in 0.9 % Sodium Chloride 250 ML IVPB SCH (05:00)
[2020-04-04] MEDS ORDERED: Vancomycin 1,750 MG/517.5 ML IV.SOLN IVPB ONE (05:00)
[2020-04-04 05:04] LABS: Troponin I 0.26 ng/mL (< 0.04)
[2020-04-04] MEDS ORDERED: 0.9 % Sodium Chloride 1,000 ML IVC SCH ×2 (05:15→06:16)
[2020-04-04] MEDS ORDERED: Cefepime HCl 2,000 MG in 0.9 % Sodium Chloride Mini Bag 100 ML IVPB SCH (06:00)
[2020-04-04] MEDS: Piperacillin/Tazobactam 3.375 GM in 0.9 % Sodium Chloride Mini Bag 100 ML IVPB SCH ×2 (09:13→19:29)
[2020-04-04] MEDS: 0.9 % Sodium Chloride 1,000 ML IVC SCH ×2 (09:15→23:33)
[2020-04-04] MEDS: ALPRAZolam 0.5 MG TABLET PO SCH ×2 (15:56→19:29)
[2020-04-04] MEDS ORDERED: Ipratropium/Albuterol Neb 3 ML IH PRN (16:29)
[2020-04-04] MEDS ORDERED: *HR* Warfarin 4 MG TABLET PO ONE (18:00)
[2020-04-04] MEDS ORDERED: Warfarin perPT PO PRN (18:00)
[2020-04-04] MEDS: Ipratropium/Albuterol Neb 3 ML IH SCH ×2 (23:39→23:42)
[2020-04-05] MEDS: Ipratropium/Albuterol Neb 3 ML IH SCH ×6 (03:28→23:24)
[2020-04-05] MEDS: DilTIAZem 50 MG/50 ML IV.SOLN IVC SCH (04:41)
[2020-04-05 05:37] LABS: Basophils % 0.1 %; Hematocrit 40.7 % (37.5-50.1); Hemoglobin 13.1 g/dL (12.9-16.9); INR 1.4; Immature Granulocytes % 0.6 % (0-4); Lymphocytes % 6.8 %; Mean Corpuscular HGB Conc 32.2 g/dL (31.6-35.5); Mean Corpuscular Hemoglobin 31.9 pg (28.0-33.3); Mean Platelet Volume 10.7 fL (9.4-12.4); Monocytes # 0.6 K/mcL (0.0-1.3); Monocytes % 3.9 %; Neutrophils # 13.6 K/mcL (1.6-8.9); Platelet Count 155 K/mcL (140-400); Prothrombin Time 15.7 Seconds (9.4-12.1); Red Blood Count 4.11 M/mcL (4.19-5.50); Red Cell Distribution Width 14.3 % (11.5-14.5); Segmented Neutrophils % 88.6 %; White Blood Count 15.3 K/mcL (4.3-11.1)
[2020-04-05 05:51] LABS: Potassium 3.9 mEq/L (3.5-5.1)
[2020-04-05] MEDS ORDERED: Vancomycin 1,250 MG/262.5 ML IV.SOLN IVPB ONE (07:00)
[2020-04-05] MEDS: Budesonide/Formoterol 80/4.5 1 PUFF INH IH SCH ×2 (07:21→20:01)
[2020-04-05] MEDS: ALPRAZolam 0.5 MG TABLET PO SCH ×2 (08:21→19:35)
[2020-04-05] MEDS: Insulin LISPRO 300 UNITS/3 ML VIAL SQ SCH ×3 (08:22→17:33)
[2020-04-05] MEDS: DilTIAZem CD (24hr) 240 MG CAP.ER.24H PO SCH (08:22)
[2020-04-05] MEDS: Metoprolol XL (24 HR) Succ 25 MG TAB.ER.24H PO SCH (08:22)
[2020-04-05] MEDS: Piperacillin/Tazobactam 3.375 GM in 0.9 % Sodium Chloride Mini Bag 100 ML IVPB SCH ×2 (08:23→17:35)
[2020-04-05] MEDS: MethylPREDNISolone 40 MG/ML VIAL IVP SCH ×2 (14:12→19:34)
[2020-04-05] MEDS ORDERED: *HR* Warfarin 3 MG TABLET PO ONE (18:00)
[2020-04-06] MEDS: Piperacillin/Tazobactam 3.375 GM in 0.9 % Sodium Chloride Mini Bag 100 ML IVPB SCH ×4 (00:01→23:37)
[2020-04-06] MEDS: Ipratropium/Albuterol Neb 3 ML IH SCH ×6 (03:27→23:29)
[2020-04-06 05:17] LABS: BUN/Creatinine Ratio 16 (6-26); Blood Urea Nitrogen 20 mg/dL (8-23); Calcium 8.3 mg/dL (8.6-10.3); Carbon Dioxide 18 mEq/L (23-29); Chloride 103 mEq/L (98-107); Creatine Kinase 473 Units/L (30-223); Glucose 282 mg/dL (70-105); Osmolality,Calculated 287 (280-300); Potassium 4.3 mEq/L (3.5-5.1); Sodium 132 mEq/L (136-145); eGFR For African Americans > 60 (> 60); eGFR For Non-African Americans 57 (> 60)
[2020-04-06 06:36] LABS: INR 1.7; Prothrombin Time 19.6 Seconds (9.4-12.1)
[2020-04-06 07:33] LABS: Basophils % 0.1 %; Hematocrit 38.1 % (37.5-50.1); Hemoglobin 12.3 g/dL (12.9-16.9); Immature Granulocytes % 0.9 % (0-4); Lymphocytes # 0.5 K/mcL (0.6-4.6); Lymphocytes % 3.5 %; Mean Corpuscular HGB Conc 32.3 g/dL (31.6-35.5); Mean Corpuscular Hemoglobin 31.4 pg (28.0-33.3); Mean Corpuscular Volume 97.2 fL (83.0-100.0); Mean Platelet Volume 10.9 fL (9.4-12.4); Monocytes # 0.3 K/mcL (0.0-1.3); Monocytes % 2.2 %; Platelet Count 159 K/mcL (140-400); Red Blood Count 3.92 M/mcL (4.19-5.50); Red Cell Distribution Width 13.9 % (11.5-14.5); Segmented Neutrophils % 93.3 %
[2020-04-06] MEDS: Budesonide/Formoterol 80/4.5 1 PUFF INH IH SCH ×2 (07:54→19:35)
[2020-04-06] MEDS: Insulin LISPRO 300 UNITS/3 ML VIAL SQ SCH ×3 (08:45→17:10)
[2020-04-06] MEDS: MethylPREDNISolone 40 MG/ML VIAL IVP SCH (08:45)
[2020-04-06] MEDS: DilTIAZem CD (24hr) 240 MG CAP.ER.24H PO SCH (08:45)
[2020-04-06] MEDS: ALPRAZolam 0.5 MG TABLET PO SCH ×2 (08:45→19:38)
[2020-04-06] MEDS: Metoprolol XL (24 HR) Succ 25 MG TAB.ER.24H PO SCH (08:45)
[2020-04-06] MEDS: Vancomycin 1,250 MG/262.5 ML IV.SOLN IVPB SCH (09:06)
[2020-04-06] MEDS ORDERED: *HR* Warfarin 4 MG TABLET PO ONE (18:00)
[2020-04-07 03:42] LABS: Basophils % 0.2 %; Hematocrit 39.3 % (37.5-50.1); Hemoglobin 12.7 g/dL (12.9-16.9); Immature Granulocytes % 1.1 % (0-4); Lymphocytes # 0.6 K/mcL (0.6-4.6); Lymphocytes % 3.4 %; Mean Corpuscular HGB Conc 32.3 g/dL (31.6-35.5); Mean Corpuscular Hemoglobin 31.6 pg (28.0-33.3); Mean Corpuscular Volume 97.8 fL (83.0-100.0); Mean Platelet Volume 10.2 fL (9.4-12.4); Monocytes # 0.6 K/mcL (0.0-1.3); Monocytes % 3.3 %; Neutrophils # 16.8 K/mcL (1.6-8.9); Platelet Count 193 K/mcL (140-400); Red Blood Count 4.02 M/mcL (4.19-5.50); Red Cell Distribution Width 13.7 % (11.5-14.5); White Blood Count 18.3 K/mcL (4.3-11.1)
[2020-04-07 03:54] LABS: INR 2.5; Prothrombin Time 27.9 Seconds (9.4-12.1)
[2020-04-07] MEDS: Ipratropium/Albuterol Neb 3 ML IH SCH ×6 (04:04→23:36)
[2020-04-07 06:31] LABS: Calcium 8.8 mg/dL (8.6-10.3); Potassium 4.2 mEq/L (3.5-5.1)
[2020-04-07] MEDS: Budesonide/Formoterol 80/4.5 1 PUFF INH IH SCH ×2 (07:36→20:08)
[2020-04-07] MEDS: ALPRAZolam 0.5 MG TABLET PO SCH ×2 (09:41→20:21)
[2020-04-07] MEDS: predniSONE 20 MG TABLET PO SCH (09:41)
[2020-04-07] MEDS: DilTIAZem CD (24hr) 240 MG CAP.ER.24H PO SCH (09:41)
[2020-04-07] MEDS: Insulin LISPRO 300 UNITS/3 ML VIAL SQ SCH ×3 (09:42→16:18)
[2020-04-07] MEDS: Piperacillin/Tazobactam 3.375 GM in 0.9 % Sodium Chloride Mini Bag 100 ML IVPB SCH ×2 (09:42→16:17)
[2020-04-07] MEDS: Vancomycin 1,250 MG/262.5 ML IV.SOLN IVPB SCH (09:42)
[2020-04-07] MEDS ORDERED: *HR* Warfarin 4 MG TABLET PO ONE (18:00)
[2020-04-08] MEDS: Piperacillin/Tazobactam 3.375 GM in 0.9 % Sodium Chloride Mini Bag 100 ML IVPB SCH ×2 (00:45→09:12)
[2020-04-08 01:36] LABS: Hematocrit 35.4 % (37.5-50.1); Hemoglobin 11.6 g/dL (12.9-16.9); Mean Corpuscular HGB Conc 32.8 g/dL (31.6-35.5); Mean Corpuscular Hemoglobin 31.7 pg (28.0-33.3); Mean Corpuscular Volume 96.7 fL (83.0-100.0); Mean Platelet Volume 10.1 fL (9.4-12.4); Platelet Count 182 K/mcL (140-400); Red Blood Count 3.66 M/mcL (4.19-5.50); White Blood Count 12.9 K/mcL (4.3-11.1)
[2020-04-08 01:46] LABS: INR 2.1; Prothrombin Time 23.9 Seconds (9.4-12.1)
[2020-04-08 01:58] LABS: Calcium 8.6 mg/dL (8.6-10.3); Magnesium 1.9 mg/dL (1.6-2.6); Potassium 4.5 mEq/L (3.5-5.1)
[2020-04-08] MEDS: Ipratropium/Albuterol Neb 3 ML IH SCH ×2 (03:10→07:20)
[2020-04-08 07:02] VITALS: BP 113/75
[2020-04-08] MEDS: Budesonide/Formoterol 80/4.5 1 PUFF INH IH SCH (07:20)
[2020-04-08] MEDS: predniSONE 20 MG TABLET PO SCH (09:12)
[2020-04-08] MEDS: ALPRAZolam 0.5 MG TABLET PO SCH (09:12)
[2020-04-08] MEDS: DilTIAZem CD (24hr) 240 MG CAP.ER.24H PO SCH (09:12)
[2020-04-08] MEDS: Insulin LISPRO 300 UNITS/3 ML VIAL SQ SCH (09:13)
[2020-04-08] MEDS: Vancomycin 1,250 MG/262.5 ML IV.SOLN IVPB SCH (09:13)
== END 2020-04-08 11:17 | disposition other institution (70) | DRG 871 ==
LOC: 2NNU → SUATTDRO 23:37 → 2ANU 04-06 22:38
PROVIDERS: ADMIT Family Medicine; ATTEND Internal Medicine

== ENCOUNTER 2020-11-23 21:58 | Observation (INO) ==
[2020-11-23] MEDS ORDERED: Aspirin 81 MG TAB.CHEW PO ONE (22:09)
[2020-11-23] MEDS ORDERED: Isovue-370 500 ML BOTTLE IVP ONE (22:33)
[2020-11-23 22:47] LABS: Basophils % 0.3 %; Eosinophils # 0.1 K/mcL (0.0-0.6); Eosinophils % 0.7 %; Hematocrit 42.2 % (37.5-50.1); Hemoglobin 13.7 g/dL (12.9-16.9); Immature Granulocytes % 0.6 % (0-4); Lymphocytes # 1.9 K/mcL (0.6-4.6); Lymphocytes % 15.4 %; Mean Corpuscular HGB Conc 32.5 g/dL (31.6-35.5); Mean Corpuscular Volume 92.3 fL (83.0-100.0); Mean Platelet Volume 10.3 fL (9.4-12.4); Monocytes # 0.9 K/mcL (0.0-1.3); Neutrophils # 9.5 K/mcL (1.6-8.9); Platelet Count 200 K/mcL (140-400); Red Blood Count 4.57 M/mcL (4.19-5.50); Red Cell Distribution Width 15.3 % (11.5-14.5); White Blood Count 12.5 K/mcL (4.3-11.1)
[2020-11-23 23:01] LABS: INR 4.6; Prothrombin Time 51.3 Seconds (9.4-12.1)
[2020-11-23 23:12] LABS: Alanine Aminotransferase 13 Units/L (7-52); Albumin 3.2 g/dL (3.5-5.7); Albumin/Globulin Ratio 1.1 (1.1-2.2); Alkaline Phosphatase 79 Units/L (34-104); Aspartate Amino Transferase 12 Units/L (13-39); BUN/Creatinine Ratio 21 (6-26); Bilirubin,Direct 0.1 mg/dL (0.0-0.2); Bilirubin,Indirect 0.3 mg/dL (0.0-1.0); Bilirubin,Total 0.4 mg/dL (0.3-1.0); Blood Urea Nitrogen 34 mg/dL (8-23); Calcium 8.5 mg/dL (8.6-10.3); Carbon Dioxide 25 mEq/L (23-29); Chloride 104 mEq/L (98-107); Glucose 142 mg/dL (70-105); Lipase 27 Units/L (11-82); Osmolality,Calculated 296 (280-300); Potassium 4.1 mEq/L (3.5-5.1); Sodium 138 mEq/L (136-145); Total Protein 6.2 g/dL (6.4-8.9); Troponin I < 0.03 ng/mL (< 0.04); eGFR For African Americans 50 (> 60); eGFR For Non-African Americans 42 (> 60)
[2020-11-23] MEDS ORDERED: Morphine Sulfate 2 MG/ML SYRINGE IVP STA (23:20)
[2020-11-24 00:41] LABS: Bilirubin,Urine Negative (Negative); Blood,Urine Negative (Negative); Clarity,Urine Clear (Clear); Color,Urine Light-Yellow (Yellow); Glucose,Urine (UA) Normal (Normal); Ketones,Urine Trace mg/dL (Negative); Leukocyte Esterase,Urine Negative (Negative); Nitrite,Urine Negative (Negative); Protein,Urine Trace mg/dL (Neg-Trace); Specific Gravity,Urine 1.023 (1.010-1.025); Urobilinogen,Urine Normal (Normal)
[2020-11-24] MEDS ORDERED: Ondansetron 4 MG/2 ML VIAL IVP PRN (02:51)
[2020-11-24] MEDS ORDERED: Naloxone 0.4 MG/ML INJ IVP PRN (02:51)
[2020-11-24] MEDS ORDERED: Melatonin 3 MG TABLET PO PRN (02:51)
[2020-11-24] MEDS ORDERED: *HR* Dextrose 50 % in Water (Vial) 50 ML VIAL IVP PRN (03:00)
[2020-11-24] MEDS ORDERED: Dextrose Gel 15 GM/37.5 ML TUBE PO PRN ×2 (03:00)
[2020-11-24] MEDS ORDERED: D5% in Water 1,000 ML IVC PRN (03:00)
[2020-11-24] MEDS: Acetaminophen 325 MG TABLET PO PRN (03:44)
[2020-11-24] MEDS ORDERED: Ipratropium/Albuterol Neb 3 ML IH PRN (03:56)
[2020-11-24] MEDS ORDERED: Ipratropium/Albuterol Neb 3 ML ONE (04:01)
[2020-11-24] MEDS ORDERED: Furosemide 20 MG/2 ML VIAL IVP ONE (04:09)
[2020-11-24] MEDS ORDERED: Perflutren Lipid Microsphere 1.3 ML in 0.9 % Sodium Chloride 8.7 ML IVP PRN (04:36)
[2020-11-24] MEDS ORDERED: Regadenoson 0.4 MG/5 ML SYRINGE IVP ONE (06:20)
[2020-11-24] MEDS: Budesonide/Formoterol 80/4.5 1 PUFF INH IH SCH ×2 (07:52→22:46)
[2020-11-24 07:59] LABS: Basophils % 0.3 %; Eosinophils # 0.1 K/mcL (0.0-0.6); Eosinophils % 0.9 %; Hematocrit 42.8 % (37.5-50.1); Hemoglobin 13.4 g/dL (12.9-16.9); Immature Granulocytes % 0.3 % (0-4); Lymphocytes # 2.1 K/mcL (0.6-4.6); Lymphocytes % 24.4 %; Mean Corpuscular HGB Conc 31.3 g/dL (31.6-35.5); Mean Corpuscular Hemoglobin 29.8 pg (28.0-33.3); Mean Corpuscular Volume 95.3 fL (83.0-100.0); Mean Platelet Volume 10.5 fL (9.4-12.4); Monocytes # 0.7 K/mcL (0.0-1.3); Monocytes % 8.2 %; Neutrophils # 5.8 K/mcL (1.6-8.9); Platelet Count 175 K/mcL (140-400); Red Blood Count 4.49 M/mcL (4.19-5.50); Red Cell Distribution Width 15.6 % (11.5-14.5); Segmented Neutrophils % 65.9 %; White Blood Count 8.8 K/mcL (4.3-11.1)
[2020-11-24 08:15] LABS: INR 3.5
[2020-11-24] MEDS: Insulin LISPRO 300 UNITS/3 ML VIAL SUBQ SCH ×3 (08:16→16:47)
[2020-11-24 09:12] LABS: BUN/Creatinine Ratio 19 (6-26); Blood Urea Nitrogen 29 mg/dL (8-23); Calcium 8.7 mg/dL (8.6-10.3); Carbon Dioxide 22 mEq/L (23-29); Chloride 104 mEq/L (98-107); Cholesterol 109 mg/dL (< 200); Glucose 144 mg/dL (70-105); HDL Cholesterol 36 mg/dL (40-59); LDL Cholesterol,Calculated 48 mg/dL (< 100); Osmolality,Calculated 290 (280-300); Phosphorous 3.2 mg/dL (2.7-4.5); Potassium 4.3 mEq/L (3.5-5.1); Sodium 136 mEq/L (136-145); Triglycerides 124 mg/dL (< 150); Troponin I < 0.03 ng/mL (< 0.04); eGFR For African Americans 53 (> 60); eGFR For Non-African Americans 44 (> 60)
[2020-11-24] MEDS: Morphine Sulfate 2 MG/ML SYRINGE IVP PRN ×3 (09:32→20:11)
[2020-11-24] MEDS ORDERED: Morphine Sulfate 2 MG/ML SYRINGE IVP ONE (10:50)
[2020-11-24] MEDS: Aspirin 81 MG TAB.CHEW PO SCH (12:28)
[2020-11-24] MEDS: Metoprolol XL (24 HR) Succ 50 MG TAB.ER.24H PO SCH (12:29)
[2020-11-24] MEDS: DilTIAZem CD (24hr) 240 MG CAP.ER.24H PO SCH (12:29)
[2020-11-25 05:39] LABS: Hematocrit 44.2 % (37.5-50.1); Hemoglobin 13.9 g/dL (12.9-16.9); Mean Corpuscular HGB Conc 31.4 g/dL (31.6-35.5); Mean Corpuscular Hemoglobin 29.8 pg (28.0-33.3); Mean Corpuscular Volume 94.8 fL (83.0-100.0); Mean Platelet Volume 10.4 fL (9.4-12.4); Platelet Count 180 K/mcL (140-400); Red Blood Count 4.66 M/mcL (4.19-5.50); Red Cell Distribution Width 15.8 % (11.5-14.5)
[2020-11-25 05:50] LABS: Prothrombin Time 22.5 Seconds (9.4-12.1)
[2020-11-25 06:35] LABS: Calcium 8.7 mg/dL (8.6-10.3); Potassium 4.2 mEq/L (3.5-5.1)
[2020-11-25] MEDS: Insulin LISPRO 300 UNITS/3 ML VIAL SUBQ SCH ×3 (07:26→17:46)
[2020-11-25] MEDS: Budesonide/Formoterol 80/4.5 1 PUFF INH IH SCH ×2 (07:57→19:57)
[2020-11-25] MEDS: DilTIAZem CD (24hr) 240 MG CAP.ER.24H PO SCH (08:16)
[2020-11-25] MEDS: Aspirin 81 MG TAB.CHEW PO SCH (08:17)
[2020-11-25] MEDS: Metoprolol XL (24 HR) Succ 50 MG TAB.ER.24H PO SCH (08:17)
[2020-11-25] MEDS: Acetaminophen 325 MG TABLET PO PRN (14:04)
[2020-11-25] MEDS: Nitroglycerin 0.4 MG TAB.SUBL SL PRN ×2 (14:45→14:54)
[2020-11-25] MEDS ORDERED: *HR* OxyCODONE/APAP 5/325 TABLET PO PRN (14:57)
[2020-11-25] MEDS: Carbidopa/Levodopa 25/100 TABLET PO SCH ×2 (15:58→20:59)
[2020-11-25] MEDS: Gabapentin 400 MG CAPSULE PO SCH ×2 (15:58→20:59)
[2020-11-25] MEDS ORDERED: Warfarin perPT PO PRN (18:00)
[2020-11-25] MEDS ORDERED: *HR* Warfarin 3 MG TABLET PO ONE (18:00)
[2020-11-25] MEDS: Furosemide 40 MG/4 ML VIAL IVP SCH (18:00)
[2020-11-25] MEDS: ALPRAZolam 0.5 MG TABLET PO PRN (20:58)
[2020-11-26 01:09] LABS: Hemoglobin 13.8 g/dL (12.9-16.9); Mean Corpuscular HGB Conc 31.4 g/dL (31.6-35.5); Mean Corpuscular Hemoglobin 29.4 pg (28.0-33.3); Mean Corpuscular Volume 93.8 fL (83.0-100.0); Mean Platelet Volume 10.3 fL (9.4-12.4); Platelet Count 180 K/mcL (140-400); Red Blood Count 4.69 M/mcL (4.19-5.50); Red Cell Distribution Width 15.9 % (11.5-14.5); White Blood Count 9.5 K/mcL (4.3-11.1)
[2020-11-26 01:24] LABS: INR 1.7; Prothrombin Time 19.5 Seconds (9.4-12.1)
[2020-11-26 01:26] LABS: Calcium 8.7 mg/dL (8.6-10.3); Potassium 4.5 mEq/L (3.5-5.1)
[2020-11-26] MEDS: Budesonide/Formoterol 80/4.5 1 PUFF INH IH SCH ×2 (07:25→20:05)
[2020-11-26] MEDS: Metoprolol XL (24 HR) Succ 50 MG TAB.ER.24H PO SCH (07:56)
[2020-11-26] MEDS: ARIPiprazole 5 MG TABLET PO SCH (07:56)
[2020-11-26] MEDS: Aspirin 81 MG TAB.CHEW PO SCH (07:56)
[2020-11-26] MEDS: Carbidopa/Levodopa 25/100 TABLET PO SCH ×3 (07:56→19:25)
[2020-11-26] MEDS: Furosemide 40 MG/4 ML VIAL IVP SCH (07:57)
[2020-11-26] MEDS: DilTIAZem CD (24hr) 240 MG CAP.ER.24H PO SCH (07:57)
[2020-11-26] MEDS: Gabapentin 400 MG CAPSULE PO SCH ×3 (07:57→19:25)
[2020-11-26] MEDS: Insulin LISPRO 300 UNITS/3 ML VIAL SUBQ SCH ×3 (07:57→16:51)
[2020-11-26] MEDS ORDERED: NON-FORMULARY MEDICATION 1 EACH EACH (Fluticasone/Vilanterol [Breo Ellipta 100-25 Mcg Inh] IH SCH (09:00)
[2020-11-26] MEDS: ALPRAZolam 0.5 MG TABLET PO PRN (16:50)
[2020-11-26] MEDS ORDERED: *HR* Warfarin 4 MG TABLET PO ONE (18:00)
[2020-11-26] MEDS ORDERED: Furosemide 40 MG TABLET PO SCH ×2 (21:00)
[2020-11-27 07:53] VITALS: BP 144/83
[2020-11-27] MEDS: Budesonide/Formoterol 80/4.5 1 PUFF INH IH SCH (07:57)
[2020-11-27] MEDS: Gabapentin 400 MG CAPSULE PO SCH (08:18)
[2020-11-27] MEDS: Aspirin 81 MG TAB.CHEW PO SCH (08:18)
[2020-11-27] MEDS: Carbidopa/Levodopa 25/100 TABLET PO SCH (08:19)
[2020-11-27] MEDS: DilTIAZem CD (24hr) 240 MG CAP.ER.24H PO SCH (08:19)
[2020-11-27] MEDS: ARIPiprazole 5 MG TABLET PO SCH (08:19)
[2020-11-27] MEDS: Metoprolol XL (24 HR) Succ 50 MG TAB.ER.24H PO SCH (08:19)
[2020-11-27] MEDS: Insulin LISPRO 300 UNITS/3 ML VIAL SUBQ SCH (08:19)
== END 2020-11-27 09:04 | disposition critical access hospital (66) ==
LOC: EMEROOARM 21:58 → 3ANU 21:58 → SUATTDRO 11-24 01:50 → 3ANU 11-24 02:36
PROVIDERS: ADMIT Student in an Organized Health Care Education/Training Program; ATTEND Family Medicine

== ENCOUNTER 2020-12-04 23:28 | Observation (INO) ==
[2020-12-04] MEDS ORDERED: Ondansetron 4 MG/2 ML VIAL IVP ONE (23:36)
[2020-12-05 00:55] LABS: Basophils % 0.5 %; Eosinophils # 0.1 K/mcL (0.0-0.6); Eosinophils % 1.5 %; Hematocrit 45.2 % (37.5-50.1); Immature Granulocytes % 0.5 % (0-4); Lymphocytes # 1.9 K/mcL (0.6-4.6); Lymphocytes % 21.4 %; Mean Corpuscular Hemoglobin 29.1 pg (28.0-33.3); Monocytes # 0.7 K/mcL (0.0-1.3); Monocytes % 8.4 %; Neutrophils # 5.9 K/mcL (1.6-8.9); Platelet Count 193 K/mcL (140-400); Red Blood Count 4.81 M/mcL (4.19-5.50); Red Cell Distribution Width 15.9 % (11.5-14.5); Segmented Neutrophils % 67.7 %; White Blood Count 8.7 K/mcL (4.3-11.1)
[2020-12-05 01:17] LABS: INR 1.7; Prothrombin Time 19.6 Seconds (9.4-12.1)
[2020-12-05 01:23] LABS: Alanine Aminotransferase 14 Units/L (7-52); Albumin 3.3 g/dL (3.5-5.7); Albumin/Globulin Ratio 1.2 (1.1-2.2); Alkaline Phosphatase 82 Units/L (34-104); Aspartate Amino Transferase 12 Units/L (13-39); BUN/Creatinine Ratio 21 (6-26); Bilirubin,Direct 0.1 mg/dL (0.0-0.2); Bilirubin,Indirect 0.3 mg/dL (0.0-1.0); Bilirubin,Total 0.4 mg/dL (0.3-1.0); Blood Urea Nitrogen 27 mg/dL (8-23); C-Reactive Protein 10 mg/L (Less than 10); Calcium 7.9 mg/dL (8.6-10.3); Carbon Dioxide 23 mEq/L (23-29); Chloride 109 mEq/L (98-107); Globulin 2.7 g/dL (2.4-3.5); Glucose 93 mg/dL (70-105); Lactate Dehydrogenase 170 Units/L (140-271); Magnesium 2.1 mg/dL (1.6-2.6); Osmolality,Calculated 297 (280-300); Phosphorous 2.5 mg/dL (2.7-4.5); Potassium 3.9 mEq/L (3.5-5.1); Sodium 141 mEq/L (136-145); Troponin I < 0.03 ng/mL (< 0.04); eGFR For African Americans > 60 (> 60); eGFR For Non-African Americans 55 (> 60)
[2020-12-05 01:35] LABS: Ferritin 59 ng/mL (20-250)
[2020-12-05 02:42] LABS: Adenovirus Not Detected (Not Detect); Bordetella Pertussis Not Detected (Not Detect); Chlamydophila pneumoniae Not Detected (Not Detect); Coronavirus 229E Not Detected (Not Detect); Coronavirus HKU1 Not Detected (Not Detect); Coronavirus NL63 Not Detected (Not Detect); Coronavirus OC43 Not Detected (Not Detect); Human Metapneumovirus Not Detected (Not Detect); Human Rhinovirus/Enterovirus Not Detected (Not Detect); Influenza A Subtype 2009 H1 Not Detected (Not Detect); Influenza B Not Detected (Not Detect); Mycoplasma pneumoniae Not Detected (Not Detect); Parainfluenza Virus 1 Not Detected (Not Detect); Parainfluenza Virus 2 Not Detected (Not Detect); Parainfluenza Virus 3 Not Detected (Not Detect); Parainfluenza Virus 4 Not Detected (Not Detect); Respiratory Syncytial Virus Not Detected (Not Detect); SARS-CoV-2 Not Detected (Not Detect)
[2020-12-05] MEDS: *HR* OxyCODONE Immed Rel 5 MG TABLET PO PRN ×4 (02:49→23:45)
[2020-12-05] MEDS ORDERED: Azithromycin 500 MG in 0.9 % Sodium Chloride 250 ML IVPB ONE (02:49)
[2020-12-05] MEDS ORDERED: cefTRIAXone 1,000 MG in Water for inj. (sterile) 10 ML IVP ONE (02:49)
[2020-12-05] MEDS ORDERED: Albuterol 2.5 MG/3 ML NEBULIZER IH PRN (04:03)
[2020-12-05] MEDS ORDERED: D5% in Water 1,000 ML IVC PRN (04:08)
[2020-12-05] MEDS ORDERED: Dextrose Gel 15 GM/37.5 ML TUBE PO PRN ×2 (04:08)
[2020-12-05] MEDS ORDERED: *HR* Dextrose 50 % in Water (Vial) 50 ML VIAL IVP PRN (04:08)
[2020-12-05] MEDS ORDERED: Naloxone 0.4 MG/ML INJ IVP PRN (04:09)
[2020-12-05] MEDS ORDERED: Ondansetron 4 MG/2 ML VIAL IVP PRN (04:09)
[2020-12-05] MEDS ORDERED: Melatonin 3 MG TABLET PO PRN (04:09)
[2020-12-05] MEDS ORDERED: Acetaminophen 325 MG TABLET PO PRN (04:09)
[2020-12-05] MEDS: Budesonide/Formoterol 160/4.5 1 PUFF INH IH SCH (09:34)
[2020-12-05] MEDS: Tiotropium 10 INH DOSE IH SCH (09:35)
[2020-12-05] MEDS: ALPRAZolam 0.5 MG TABLET PO PRN ×2 (10:09→21:00)
[2020-12-05] MEDS: Carbidopa/Levodopa 25/100 TABLET PO SCH ×3 (10:09→21:00)
[2020-12-05] MEDS: ARIPiprazole 5 MG TABLET PO SCH (10:10)
[2020-12-05] MEDS: Furosemide 40 MG TABLET PO SCH (10:10)
[2020-12-05] MEDS: DilTIAZem CD (24hr) 240 MG CAP.ER.24H PO SCH (10:10)
[2020-12-05] MEDS: Aspirin 81 MG TAB.CHEW PO SCH (10:10)
[2020-12-05] MEDS: Gabapentin 400 MG CAPSULE PO SCH ×3 (10:10→21:01)
[2020-12-05] MEDS: Metoprolol XL (24 HR) Succ 50 MG TAB.ER.24H PO SCH (10:11)
[2020-12-05] MEDS: Insulin LISPRO 300 UNITS/3 ML VIAL SUBQ SCH ×3 (10:11→18:56)
[2020-12-05] MEDS ORDERED: Ipratropium/Albuterol Neb 3 ML IH PRN (10:54)
[2020-12-05] MEDS: MethylPREDNISolone 40 MG/ML VIAL IVP SCH ×2 (16:46→23:45)
[2020-12-05] MEDS ORDERED: *HR* Warfarin 4 MG TABLET PO ONE (18:00)
[2020-12-05] MEDS ORDERED: Warfarin perPT PO PRN (18:00)
[2020-12-05] MEDS ORDERED: Insulin LISPRO 300 UNITS/3 ML VIAL SUBQ SCH (21:00)
[2020-12-06 03:39] LABS: Basophils % 0.1 %; Hematocrit 46.1 % (37.5-50.1); Hemoglobin 14.3 g/dL (12.9-16.9); Immature Granulocytes % 0.5 % (0-4); Lymphocytes % 11.5 %; Mean Corpuscular Hemoglobin 29.7 pg (28.0-33.3); Mean Corpuscular Volume 95.6 fL (83.0-100.0); Mean Platelet Volume 10.4 fL (9.4-12.4); Monocytes # 0.1 K/mcL (0.0-1.3); Monocytes % 0.8 %; Neutrophils # 7.2 K/mcL (1.6-8.9); Platelet Count 198 K/mcL (140-400); Red Blood Count 4.82 M/mcL (4.19-5.50); Red Cell Distribution Width 15.7 % (11.5-14.5); Segmented Neutrophils % 87.1 %; White Blood Count 8.2 K/mcL (4.3-11.1)
[2020-12-06 03:52] LABS: INR 1.4; Prothrombin Time 16.5 Seconds (9.4-12.1)
[2020-12-06] MEDS: MethylPREDNISolone 40 MG/ML VIAL IVP SCH ×2 (05:48→08:28)
[2020-12-06 06:54] LABS: Calcium 9.3 mg/dL (8.6-10.3)
[2020-12-06] MEDS: Budesonide/Formoterol 160/4.5 1 PUFF INH IH SCH (08:04)
[2020-12-06] MEDS: Tiotropium 10 INH DOSE IH SCH (08:04)
[2020-12-06] MEDS: DilTIAZem CD (24hr) 240 MG CAP.ER.24H PO SCH (08:28)
[2020-12-06] MEDS: Gabapentin 400 MG CAPSULE PO SCH (08:28)
[2020-12-06] MEDS: Metoprolol XL (24 HR) Succ 50 MG TAB.ER.24H PO SCH (08:28)
[2020-12-06] MEDS: Carbidopa/Levodopa 25/100 TABLET PO SCH (08:29)
[2020-12-06] MEDS: ARIPiprazole 5 MG TABLET PO SCH (08:29)
[2020-12-06] MEDS: Aspirin 81 MG TAB.CHEW PO SCH (08:29)
[2020-12-06] MEDS: Furosemide 40 MG TABLET PO SCH (08:29)
[2020-12-06] MEDS: Insulin LISPRO 300 UNITS/3 ML VIAL SUBQ SCH ×2 (08:35→12:18)
[2020-12-06] MEDS ORDERED: cefTRIAXone 1,000 MG in Water for inj. (sterile) 10 ML IVP SCH (09:00)
[2020-12-06] MEDS ORDERED: Azithromycin 250 MG TABLET PO SCH (09:00)
[2020-12-06] MEDS ORDERED: Budesonide/Formoterol 160/4.5 1 PUFF INH IH SCH (10:00)
[2020-12-06 11:25] VITALS: BP 134/84
[2020-12-06] MEDS ORDERED: *HR* Warfarin 3 MG TABLET PO ONE (18:00)
== END 2020-12-06 15:24 | disposition home or self-care (01) ==
LOC: EMEROOARM 23:28 → 2ANU 23:28
PROVIDERS: ADMIT Family Medicine; ATTEND Family Medicine